=== PATIENT | male | born 1950 | race Caucasian/White ===

== ENCOUNTER 2019-03-30 21:29 | Emergency (ER) | payer MEDICARE, OTHER ==
[~2019-03-30] VITALS: Ht 175.3 cm; Wt 120.2 kg
[~2019-03-30 21:29] MED LIST: ATOR10; ATOR40TA PO; Actos15 MG PO; CEPH500 PO; CRUTCH2 USE; CRUTCH4 USE; CYCL10 PO; Citalopram HBr40 MG PO; DICL75ER PO; DULO30 PO; GLIM4 PO; GLYB5 PO; GLYMET2.5; HYDACE10B PO; HYDACE5 PO; HYDGUAL120 PO; JANUVIA; LEVFLO500 PO; LOSARTAN POTAS100 MG PO; METF500 PO; METF500C PO; METO25ER PO; NAPR220 PO; NAPR500 PO; NAPR550 PO; OLME20; OMEP20ER PO; OXYACE5T PO; PROM25 PO; RXCYCL10 PO; RXNAPNA550 PO; RXOXYACE PO; SIMV40 PO; SIMV5 PO; SULTRIDS PO; VALS80; VALS80 PO; [UNRECOGNIZED DRUG - OTHER]
[2019-03-30 21:59] LABS: BASOPHILS ABSOLUTE AUTO 0.08 K/mm3 (0.00-0.23); BASOPHILS PERCENT AUTO 1 % (0-2); EOSINOPHILS ABSOLUTE AUTO 0.33 K/mm3 (0.00-0.68); EOSINOPHILS PERCENT AUTO 4 % (0-6); Hematocrit 48.5 % (37.0-53.0); Hemoglobin 16.2 g/dL (13.5-17.5); IMMATURE GRAN ABSOLUTE AUTO 0.05 K/mm3 (0.00-0.10); IMMATURE GRAN PERCENT AUTO 1 % (0-1); LYMPHOCYTES ABSOLUTE AUTO 2.07 K/mm3 (0.84-5.20); LYMPHOCYTES PERCENT AUTO 25 % (21-46); MONOCYTES ABSOLUTE AUTO 0.58 K/mm3 (0.16-1.47); MONOCYTES PERCENT AUTO 7 % (4-13); Mean Corpuscular HGB Conc 33.4 g/dL (31.5-36.5); Mean Corpuscular Volume 93 fL (80-100); Mean Platelet Volume 10.4 fL (9.1-12.4); NEUTROPHILS ABSOLUTE AUTO 5.18 K/mm3 (1.96-9.15); NEUTROPHILS PERCENT AUTO 62 % (41-73); Platelet Count 200 K/mm3 (150-400); RDW Coefficient Variation 13.8 % (11.7-14.2); RDW Standard Deviation 47.1 fL (35.1-46.3); Red Blood Cell Count 5.22 M/mm3 (4.30-5.90); White Blood Cell Count 8.29 K/mm3 (4.00-11.30)
[2019-03-30 22:01] LABS: Source, Urine Clean Catch
[2019-03-30 22:04] LABS: Bilirubin, Urine Neg (Neg); Blood, Urine Neg (Neg); Glucose Qualitative, Urine 4+ (Neg); Ketones, Urine Neg (Neg); Leukocyte Esterase, Urine Neg (Neg); Nitrite, Urine Neg (Neg); Protein, Urine Neg (Neg); Specific Gravity, Urine 1.015 (1.003-1.022); Urobilinogen, Urine NORM (Normal)
[2019-03-30 22:11] LABS: Appearance, Urine Clear (Clear); Color, Urine Yellow (P-Yellow)
[2019-03-30 22:19] LABS: Alanine Aminotransfer (ALT/SGP 43 U/L (12-78); Albumin/Globulin Ratio 1.1 (0.8-1.8); Alk Phos 69 U/L (50-136); Anion Gap 8 mmol/L (6-16); Aspartate Aminotrans (AST/SGOT 24 U/L (12-37); Bilirubin, Total 1.3 mg/dL (0.1-1.0); Blood Urea Nitrogen 20 mg/dL (8-24); Bun/Creatinine Ratio 16.4 (12.0-20.0); CO2, Blood 25 mmol/L (21-32); Calcium, Blood 9.2 mg/dL (8.5-10.1); Chloride, Blood 105 mmol/L (98-108); Creatinine, Blood 1.22 mg/dL (0.60-1.20); Globulin, Blood 3.5 g/dL (2.2-4.0); Glomerular Filtration Rate >60 (60-); Glucose, Blood 282 mg/dL (70-99); Potassium, Blood 4.4 mmol/L (3.5-5.5); Sodium, Blood 138 mmol/L (136-145); Total Protein, Blood 7.5 g/dL (6.4-8.2)
[2019-03-30] MEDS ORDERED: BYDUREON P2 MG/0.65 SQ (23:21)
== END 2019-03-31 01:55 | disposition home or self-care (01) ==
LOC: ER 21:29
PROVIDERS: Physician Assistant
DX: R10.32 Left lower quadrant pain (principal); E11.9 Type 2 diabetes mellitus without complications; I10 Essential (primary) hypertension; K21.9 Gastro-esophageal reflux disease without esophagitis; E78.5 Hyperlipidemia, unspecified; Z79.899 Other long term (current) drug therapy
CPT/HCPCS: 36415; 74177; 80053; 81003; 83690; 85025; 96360-59; 99284-25; J7120; Q9967

== ENCOUNTER → 2019-11-01 | Outpatient (CLI) | payer MEDICARE, OTHER ==
[~2019-11-01] MED LIST changes: +BYDUREON P2 MG/0.65 SQ
== END | disposition home or self-care (01) ==
LOC: PLD 11:21 → LAB SHORT 11:21
DX: L85.9 Epidermal thickening, unspecified (principal); L98.499 Non-pressure chronic ulcer of skin of other sites with unspecified severity
CPT/HCPCS: 88305

== ENCOUNTER → 2019-11-13 | Outpatient (CLI) | payer MEDICARE, OTHER ==
[2019-11-13 18:05] LABS: BASOPHILS ABSOLUTE AUTO 0.07 K/mm3 (0.00-0.23); BASOPHILS PERCENT AUTO 1 % (0-2); EOSINOPHILS ABSOLUTE AUTO 0.16 K/mm3 (0.00-0.68); EOSINOPHILS PERCENT AUTO 3 % (0-6); Hematocrit 51.2 % (37.0-53.0); Hemoglobin 16.9 g/dL (13.5-17.5); IMMATURE GRAN ABSOLUTE AUTO 0.05 K/mm3 (0.00-0.10); IMMATURE GRAN PERCENT AUTO 1 % (0-1); LYMPHOCYTES PERCENT AUTO 25 % (21-46); MONOCYTES ABSOLUTE AUTO 0.95 K/mm3 (0.16-1.47); MONOCYTES PERCENT AUTO 17 % (4-13); Mean Corpuscular HGB 30.7 pg (26.0-34.0); Mean Corpuscular Volume 93 fL (80-100); Mean Platelet Volume 10.6 fL (9.1-12.4); NEUTROPHILS ABSOLUTE AUTO 3.04 K/mm3 (1.96-9.15); NEUTROPHILS PERCENT AUTO 54 % (41-73); Platelet Count 228 K/mm3 (150-400); RDW Coefficient Variation 14.5 % (11.7-14.2); RDW Standard Deviation 50.2 fL (35.1-46.3); Red Blood Cell Count 5.51 M/mm3 (4.30-5.90); White Blood Cell Count 5.67 K/mm3 (4.00-11.30)
[2019-11-13 18:14] LABS: Albumin, Blood 3.7 g/dL (3.4-5.0); Bilirubin, Total 1.3 mg/dL (0.1-1.0); Calcium, Blood 9.5 mg/dL (8.5-10.1); Creatinine, Blood 1.27 mg/dL (0.60-1.20); Globulin, Blood 3.8 g/dL (2.2-4.0); Potassium, Blood 4.6 mmol/L (3.5-5.5); Total Protein, Blood 7.5 g/dL (6.4-8.2)
== END | disposition home or self-care (01) ==
LOC: LAB 17:40 → LAB SHORT 17:40
PROVIDERS: Physician Assistant
DX: R42 Dizziness and giddiness (principal)
CPT/HCPCS: 80053; 83036; 85025; 87086

== ENCOUNTER 2020-01-26 07:55 | Day surgery (SDC) | payer MEDICARE, OTHER ==
[~2020-01-26] VITALS: Ht 180.3 cm; Wt 116.6 kg
== END 2020-01-26 10:20 | disposition home or self-care (01) ==
LOC: ORSCSDS 07:55
PROVIDERS: Podiatrist Foot & Ankle Surgery
PROC: 0QBL0ZZ Excision of Right Tarsal, Open Approach (ICD-10-PCS; principal; 2020-01-26 09:15)
DX: M72.2 Plantar fascial fibromatosis (principal); M19.071 Primary osteoarthritis, right ankle and foot; I10 Essential (primary) hypertension; E11.9 Type 2 diabetes mellitus without complications; Z79.84 Long term (current) use of oral hypoglycemic drugs; Z79.899 Other long term (current) drug therapy
CPT/HCPCS: 82947; J0171; J0690; J1100; J1885; J2250; J2405; J2704; J3010; J7120

== ENCOUNTER 2021-04-24 13:27 | Emergency (ER) | payer MEDICARE, OTHER ==
[~2021-04-24] VITALS: Ht 177.8 cm; Wt 118.8 kg
[2021-04-24] MEDS ORDERED: ONDA4ODT MM (13:57)
== END 2021-04-24 13:58 | disposition home or self-care (01) ==
LOC: ER 13:27
DX: U07.1 COVID-19 (principal); I10 Essential (primary) hypertension; E11.9 Type 2 diabetes mellitus without complications; E78.5 Hyperlipidemia, unspecified; Z79.899 Other long term (current) drug therapy; Z79.84 Long term (current) use of oral hypoglycemic drugs
CPT/HCPCS: 99282

== ENCOUNTER 2021-04-28 16:30 | Inpatient (IN) | payer MEDICARE, OTHER ==
[~2021-04-28] VITALS: Ht 177.8 cm; Wt 122.7 kg
[~2021-04-28 16:30] MED LIST changes: +ONDA4ODT MM
[2021-04-28 17:07] LABS: Base Excess Venous -5.9 mmol/L; Bicarbonate Venous 19.7 mmol/L (24.0-30.0); PCO2 Venous 39.5 mmHg (38-42); PO2 Venous 52.5 mmHg (38-42); pH Blood Venous 7.32 (7.34-7.37)
[2021-04-28 17:44] LABS: BASOPHILS ABSOLUTE AUTO 0.01 K/mm3 (0.00-0.23); BASOPHILS PERCENT AUTO 0 % (0-2); EOSINOPHILS PERCENT AUTO 0 % (0-6); Hematocrit 42.4 % (37.0-53.0); IMMATURE GRAN ABSOLUTE AUTO 0.02 K/mm3 (0.00-0.10); IMMATURE GRAN PERCENT AUTO 0 % (0-1); LYMPHOCYTES ABSOLUTE AUTO 0.83 K/mm3 (0.84-5.20); LYMPHOCYTES PERCENT AUTO 11 % (21-46); MONOCYTES ABSOLUTE AUTO 0.42 K/mm3 (0.16-1.47); MONOCYTES PERCENT AUTO 5 % (4-13); Mean Corpuscular HGB 29.2 pg (26.0-34.0); Mean Corpuscular Volume 88 fL (80-100); Mean Platelet Volume 11.1 fL (9.1-12.4); NEUTROPHILS ABSOLUTE AUTO 6.44 K/mm3 (1.96-9.15); NEUTROPHILS PERCENT AUTO 83 % (41-73); Platelet Count 149 K/mm3 (150-400); RDW Coefficient Variation 12.9 % (11.7-14.2); RDW Standard Deviation 42.1 fL (35.1-46.3); White Blood Cell Count 7.72 K/mm3 (4.00-11.30)
[2021-04-28 18:04] LABS: Albumin, Blood 2.9 g/dL (3.4-5.0); Albumin/Globulin Ratio 0.7 (0.8-1.8); Bilirubin, Total 0.6 mg/dL (0.1-1.0); Bun/Creatinine Ratio 29.4 (12.0-20.0); Creatinine, Blood 1.43 mg/dL (0.60-1.20); Globulin, Blood 4.4 g/dL (2.2-4.0); Potassium, Blood 4.7 mmol/L (3.5-5.5); Total Protein, Blood 7.3 g/dL (6.4-8.2); Troponin I 0.018 ng/mL (0.000-0.040)
[2021-04-29 04:58] LABS: BASOPHILS PERCENT AUTO 0 % (0-2); EOSINOPHILS PERCENT AUTO 0 % (0-6); Hematocrit 42.4 % (37.0-53.0); Hemoglobin 14.2 g/dL (13.5-17.5); IMMATURE GRAN ABSOLUTE AUTO 0.02 K/mm3 (0.00-0.10); IMMATURE GRAN PERCENT AUTO 0 % (0-1); LYMPHOCYTES ABSOLUTE AUTO 0.52 K/mm3 (0.84-5.20); LYMPHOCYTES PERCENT AUTO 10 % (21-46); MONOCYTES ABSOLUTE AUTO 0.26 K/mm3 (0.16-1.47); MONOCYTES PERCENT AUTO 5 % (4-13); Mean Corpuscular HGB 29.6 pg (26.0-34.0); Mean Corpuscular HGB Conc 33.5 g/dL (31.5-36.5); Mean Corpuscular Volume 88 fL (80-100); Mean Platelet Volume 11.1 fL (9.1-12.4); NEUTROPHILS ABSOLUTE AUTO 4.58 K/mm3 (1.96-9.15); NEUTROPHILS PERCENT AUTO 85 % (41-73); Platelet Count 144 K/mm3 (150-400); RDW Coefficient Variation 12.8 % (11.7-14.2); RDW Standard Deviation 41.5 fL (35.1-46.3); White Blood Cell Count 5.38 K/mm3 (4.00-11.30)
[2021-04-29 05:19] LABS: Albumin, Blood 2.7 g/dL (3.4-5.0); Albumin/Globulin Ratio 0.6 (0.8-1.8); Bilirubin, Total 0.7 mg/dL (0.1-1.0); Bun/Creatinine Ratio 31.7 (12.0-20.0); Calcium, Blood 8.7 mg/dL (8.5-10.1); Creatinine, Blood 1.45 mg/dL (0.60-1.20); Globulin, Blood 4.7 g/dL (2.2-4.0); Potassium, Blood 5.4 mmol/L (3.5-5.5); Total Protein, Blood 7.4 g/dL (6.4-8.2)
--- NOTE | 2021-04-29 06:04 | NUR ---
SHIFT SUMMARY A/OX3, CURRENTLY ON 7L VIA NC. C/O PLEURITIC PAIN WITH INSPIRATION. DESATS WITH EXERTION. NO ACUTE CHANGES. BED IN LOWEST POSITION WITH CALL LIGHT IN REACH. WILL CONTINUE TO MONITOR AND REPORT TO ONCOMING RN.
--- NOTE | 2021-04-29 16:57 | NUR ---
SHIFT SUMMARY PATIENT ALERT AND ORIENTED, WEAK DUE TO DISEASE PROCESS. PATIENT REMAINING LYING IN BED RESTING THROUGHOUT THIS SHIFT. PATIENT INCREASED TO 12L O2 TO MAINTAIN O2 SAT ABOVE 90. PATIENT CURRENTLY LYING IN BED WATCHING TELEVISION.
[2021-04-30 05:02] LABS: BASOPHILS ABSOLUTE AUTO 0.01 K/mm3 (0.00-0.23); BASOPHILS PERCENT AUTO 0 % (0-2); EOSINOPHILS PERCENT AUTO 0 % (0-6); Hematocrit 41.2 % (37.0-53.0); Hemoglobin 13.9 g/dL (13.5-17.5); IMMATURE GRAN ABSOLUTE AUTO 0.03 K/mm3 (0.00-0.10); IMMATURE GRAN PERCENT AUTO 0 % (0-1); LYMPHOCYTES ABSOLUTE AUTO 0.65 K/mm3 (0.84-5.20); LYMPHOCYTES PERCENT AUTO 8 % (21-46); MONOCYTES ABSOLUTE AUTO 0.38 K/mm3 (0.16-1.47); MONOCYTES PERCENT AUTO 5 % (4-13); Mean Corpuscular HGB 29.3 pg (26.0-34.0); Mean Corpuscular HGB Conc 33.7 g/dL (31.5-36.5); Mean Corpuscular Volume 87 fL (80-100); Mean Platelet Volume 11.2 fL (9.1-12.4); NEUTROPHILS ABSOLUTE AUTO 7.09 K/mm3 (1.96-9.15); NEUTROPHILS PERCENT AUTO 87 % (41-73); Platelet Count 191 K/mm3 (150-400); RDW Coefficient Variation 12.8 % (11.7-14.2); RDW Standard Deviation 40.9 fL (35.1-46.3); Red Blood Cell Count 4.74 M/mm3 (4.30-5.90); White Blood Cell Count 8.16 K/mm3 (4.00-11.30)
[2021-04-30 05:35] LABS: Albumin, Blood 2.4 g/dL (3.4-5.0); Albumin/Globulin Ratio 0.5 (0.8-1.8); Bilirubin, Total 0.5 mg/dL (0.1-1.0); Bun/Creatinine Ratio 38.4 (12.0-20.0); Calcium, Blood 8.8 mg/dL (8.5-10.1); Creatinine, Blood 1.25 mg/dL (0.60-1.20); Globulin, Blood 4.5 g/dL (2.2-4.0); Potassium, Blood 4.8 mmol/L (3.5-5.5); Total Protein, Blood 6.9 g/dL (6.4-8.2)
--- NOTE | 2021-04-30 06:00 | NUR ---
SHIFT SUMMARY: PATIENT IS VERY ILL, CHASING HIS OXYGEN SATURATION ALL NIGHT. IMMEDIATLY HAD TO PLACE HIM ON 15L OXIMIZER AT START OF SHIFT. ONLY ABLE TO KEEP HIS SATS ABOVE 90% IS IF HE LAID ON HIS SIDE. ANY SLIGHT MOVEMENT CAUSED HIM TO DESAT. GETTING UP TO BSC DROPPED HIM TO 70%, AT ONE TIME HE WAS NOT RECOVERING, HAD HIM ON 15 LITER OXIMZER AND A NON-REBREATHER OVER IT WITH 15L EQUALLING 30L OF OXYGEN TO GET HIM ABOVE 90%, IT TOOK SEVERAL MINUTES. PATIENT BOARDERLINE NEEDING AN AIRVO ALL NIGHT. HE WAS UP AND DOWN ON HIS OXYGEN FIGHTING WHEN HE HAD TO MOVE OR DO SOMETHING TO RELAXING AND HAVING ENOUGH ENERGY TO BREATH. ENCOURAGED PRONEING, BUT UNABLE TO DO SO. HAVING ACCIDENTS DUE TO WEAKNESS, LIGHTHEADED, HEADACHES, FLUSHED IN THE FACE, AND JUST NOT ABLE TO GET ENOUGH ENERGY TO MOVE FAST ENOUGHT. VS WNL, AFEBRILE. CALL LIGHT REMAINED IN REACH.
--- NOTE | 2021-04-30 19:35 | NUR ---
PT O2 NEEDS INCREASED THIS SHIFT, AIRVO BEING USED AND SATS REMIAN 90% AND ABOVE. PT EDUCATED TO REST ON HIS SIDE. REMAINS ALERT AND ORIENTED X4. STAFF WILL CONT. TO MONITOR.
[2021-05-01 05:53] LABS: Anion Gap 6 mmol/L (6-16); Blood Urea Nitrogen 41 mg/dL (8-24); Bun/Creatinine Ratio 35.7 (12.0-20.0); CO2, Blood 24 mmol/L (21-32); Calcium, Blood 9.1 mg/dL (8.5-10.1); Chloride, Blood 106 mmol/L (98-108); Creatinine, Blood 1.15 mg/dL (0.60-1.20); Glomerular Filtration Rate >60 (60-); Glucose, Blood 252 mg/dL (70-99); Potassium, Blood 5.1 mmol/L (3.5-5.5); Sodium, Blood 136 mmol/L (136-145)
--- NOTE | 2021-05-01 07:01 | NUR ---
SHIFT SUMMARY: CONTINUES TO BE ON AIRVO 50L 95% O2. HAS TO STAY LAYING ON SIDE TO KEEP SATS ABOVE 90%. AVERAGE IS 93-94% TONIGHT. WHEN GETTING UP DESATS TO 80%, RECOVERY IS 1-2 MINUTES. TACHYPNEA AND DYSPNEA OCCUR. FLUSHED, VERY FATIQUED. NO PAIN, OCCATIONAL COUGH WITH NO PRODUCTION. LS DIMINSHED, CRACKLES. UNABLE TO LAY PRONE. NO OTHER CHANGES TO REPORT. CALL LIGHT IN REACH.
--- NOTE | 2021-05-01 19:40 | NUR ---
SUMMARY- PT A/O X4, ON MAX AIRVO 60L/94%, CRACKLES IN BASES, DESATS WITH ACTIVITY. CONT PULSE OX SATS 82-92%. PT SLEPT MOST OF THE DAY AND LAYS ON SIDES. SATS BEST AT REST. TOLERATING FOOD AND FLUIDS. USING URNIAN. FEELS EXTREMELY EXHAUSTED. REPORT TO TRENT JULIEN.
[2021-05-02 05:35] LABS: Anion Gap 7 mmol/L (6-16); Blood Urea Nitrogen 42 mg/dL (8-24); Bun/Creatinine Ratio 35.3 (12.0-20.0); CO2, Blood 26 mmol/L (21-32); Calcium, Blood 9.8 mg/dL (8.5-10.1); Chloride, Blood 103 mmol/L (98-108); Creatinine, Blood 1.19 mg/dL (0.60-1.20); Glomerular Filtration Rate >60 (60-); Glucose, Blood 273 mg/dL (70-99); Potassium, Blood 4.9 mmol/L (3.5-5.5); Sodium, Blood 136 mmol/L (136-145)
--- NOTE | 2021-05-02 05:49 | NUR ---
SHIFT SUMMARY: CONTINUES TO HOLD ON AIRVO 60L AT 95% O2. WAS ABLE TO LAY ON HIS BACK FOR SHORT PERIOD OF TIME WITH OUT DESATS. WHEN GETTING UP TO A CHAIR, IT WIPED HIM OUT OF ENERGY, AND HE DESATED TO 70'S. ONCE IN BED ON SIDE HE WAS ABLE TO RECOVER IN 2-3 MINUTES. LUNG SOUNDS COURSE, LITTLE PRODUCTION OF COUGH. IS GOOD ABOUT LAYING ON SIDE AND FOLLOWING DIRECTION. VS WNL. NO OTHER CHANGES TO REPORT. CALL LIGHT IN REACH.
--- NOTE | 2021-05-02 11:11 | NUR ---
1000 DR DEAN PHONE CONSULT WITH RN AND PT. PT IS TIRING AND SEVERE DYSPNEA WITH MIN ACTIVITY OF USING URINAL AT BEDSIDE. ORDER FOR CRUZ. LUNGS COARSE IN BASES, OCC DRY TICKLEY COUGH. RR 36 WITH ACTIVITY AND DESATS TO LOW 82, RECOVERS QUICK TO SATS 85 AND 86%, AFTER RESTING FOR 5 MINUTES, MAKES IT BACK TO SATS 90% HIGHTEST WITH RESTING RR 28-32- AIRVO AT HIGHEST SETTINGS. CALLED PEDRO RT TO NOTIFY OF LIKELY TX TO PCU AND TO COME EVAL PT ([id number])- AWAITING DR DEL TORO TO COME EVAL PT IN PERSON.
--- NOTE | 2021-05-02 11:14 | NUR ---
EXTREMELY PAINFUL INSERTION OF CRUZ, PT NOW FINE BUT GETTING PAST PROSTATE AREA WAS DIFFICULT, FLOWING YELLOW URIN, SAMPLE SENT TO LAB, STATES IT IS NOT HURTING CURRENTLY
[2021-05-02 11:30] LABS: Source, Urine Catheter
[2021-05-02 11:46] LABS: Appearance, Urine Clear (Clear); Bilirubin, Urine Neg (Neg); Blood, Urine 1+ (Neg); Color, Urine Yellow (P-Yellow); Glucose Qualitative, Urine 4+ (Neg); Ketones, Urine 1+ (Neg); Leukocyte Esterase, Urine Neg (Neg); Nitrite, Urine Neg (Neg); Protein, Urine 2+ (Neg); Specific Gravity, Urine 1.015 (1.003-1.022); Urobilinogen, Urine NORM (Normal)
[2021-05-02 12:21] LABS: Amorphous Light (0-Heavy); Bacteria Not Seen /hpf; Mucus Light (0-Heavy); Red Blood Cells, Urine 0-2 /hpf (0-2); Squamous Epithelial Cells Rare /hpf (Few); White Blood Cells, Urine 0-2 /hpf (0-5)
--- NOTE | 2021-05-02 20:53 | NUR ---
SUMM- PT WAS FEELING MORE EXHAUSTED THIS AM, MORNRNING ZOOM CALL WITH DR DEAN DECIDED TO TX PT TO PCU, BUT LATER STATED BIPAP STARTED IN HIS ROOM WAS SUFFICIENT. 1320 PLACED ON BIPAP S/T MODE FIO2 70%. PT'S RR WENT DOWN TO 24 FROM 32, SATS WENT UP FROM 84-90% ON AIRVO TO 94% AND STAYED 94-96% ALL AFTERNOON, PT'S RESP EVEN AND UNLABOERD. SKIPPED LUNCH AND RESTED, SIPA OF WATER. OREDR FOR NS 500ML THIS PM SO PT CAN REST AND KEEP BIPAP IN PLACE. PT APPEARED RESTED AND PLEASANT AND ALERT, ABLE TO SIT UP ALERT AND EAT DINNER WITH AIRVO 60L/94% AND KEPT SATS 85%. PLACED BACK ON BIPAP 191 AFTER 45MIN OFF. SPOKE TO ALL OF FAMILY TODAY JESSICA , JESSICA SON AND REY DAUGHTER. PROMISED SIMON LOPEZ A ZOOM CALL TOMORROW SO HE CAN SEE HIS DAD. HE WAS ADAMANT THAT HE COME IN TO SEE HIS DAD AND HAD TO DECLINE RELATED TO THE POLICIES. SO PASSES TO NOC RN TO RALAY INFO TO DAY RN TO INITIATE ZOOM CALL WITH SIMON LOPEZ
[2021-05-03 05:44] LABS: Anion Gap 6 mmol/L (6-16); Blood Urea Nitrogen 43 mg/dL (8-24); Bun/Creatinine Ratio 38.4 (12.0-20.0); CO2, Blood 26 mmol/L (21-32); Calcium, Blood 9.3 mg/dL (8.5-10.1); Chloride, Blood 102 mmol/L (98-108); Creatinine, Blood 1.12 mg/dL (0.60-1.20); Glomerular Filtration Rate >60 (60-); Glucose, Blood 286 mg/dL (70-99); Potassium, Blood 5.1 mmol/L (3.5-5.5); Sodium, Blood 134 mmol/L (136-145)
--- NOTE | 2021-05-03 07:55 | NUR ---
SHIFT SUMMARY: CONTINUES TO BE ON BIPAP WITH SATS HOLDING 88-92%. VERY ILL APPEARING, WEAK, DIFFICULTY MOVING IN BED. CATHETER PATENT AND DRAINING DARK YELLOW URINE. TOOK OFF BIPAP AND PLACED ON AIRVO FOR HIM TO DRINK SOME FLUIDS DUE TO VERY DRY MOUTH LAST NIGHT. WAS UNABLE TO GET 10 FEET AWAY BEFORE HE CALLED REPORTING HE COULD NOT BREATH. SATS WERE DOWN IN THE 60'S, HE WAS BLUE. AIRVO TUBE WAS KINKED AND WAS NOT DELIVERING O2. PLACED ON BIPAP TOOK HIM A WHILE TO RECOVER BLOOD SUGARS IN THE HIGH 300'S. VERY POOR APPETITE, SLEEPS ALL THE TIME. NO OTHER CHANGES TO NOTE.
--- NOTE | 2021-05-03 19:26 | NUR ---
SHIFT SUMMARY: PT REMOVED FROM BIPAP TODAY AND PLACED ON AIRVO 55 LPM, 84% FIOV. PT SATS 88-92%. PT ABLE TO EAT AND DID WELL. NO ACUTE CHANGES THIS SHIFT.
--- NOTE | 2021-05-03 21:54 | NUR ---
BG 403 DR. BURCIAGA CALLED AND NOTIFIED OF PT BG OF 403. RECEIVED ORDER TO GIVE AN ADDITIONAL 4 UNITS OF HUMULIN R. DR. BURCIAGA AWARE THAT PT ALREADY RECEIVED 6 UNITS PER SS.
--- NOTE | 2021-05-04 04:47 | NUR ---
SHIFT SUMMARY PT HAS RESTED MOST OF THE NIGHT. PT HAS SOME DIFFICULTY AT TIMES MAINTAINING HIS SATS ABOE 90%. SATS DIPPED INTO THE 80'S WITH VERY LITTLE EXERTION AND IT TAKES HIM SEVERAL MINUTES TO RECOVER. PT WAS ON AIRVO MOST OF THE NIGHT UP UNTIL ABOUT 0300 WHEN PT WAS SWITCHED TO BIPAP BY RT HAS PT WAS HAVING A DIFFICULT TIME RECOVERING AND GETTING HIS SATS INTO THE 90'S. SATS 96% ON BIPAP. PT REPOSITIONING HIMSELF IN BED NEEDED TO HELP EASE WOB AND INCREASE OXYGEN SATURATION. BG IN THE 400'S THIS SHIFT. PT COVERED WITH INSULIN PER ORDERS. VITALS STABLE. BED IN LOWEST POSITION, CALL LIGHT WITHIN REACH.
[2021-05-04 06:36] LABS: Anion Gap 8 mmol/L (6-16); Blood Urea Nitrogen 41 mg/dL (8-24); Bun/Creatinine Ratio 38.7 (12.0-20.0); CO2, Blood 24 mmol/L (21-32); Calcium, Blood 9.6 mg/dL (8.5-10.1); Chloride, Blood 101 mmol/L (98-108); Creatinine, Blood 1.06 mg/dL (0.60-1.20); Glomerular Filtration Rate >60 (60-); Glucose, Blood 196 mg/dL (70-99); Potassium, Blood 4.5 mmol/L (3.5-5.5); Sodium, Blood 133 mmol/L (136-145)
--- NOTE | 2021-05-04 16:00 | NUR ---
pt holding his own with some struggles had nurse review with him going on a ventilator and cpr he still wants full care.
--- NOTE | 2021-05-04 19:20 | NUR ---
SHIFT SUMMARY: PT NOW ON AIRVO AT 100%. PT WAS ABLE TO EAT DINNER, HAD HEADACHE IMPROVED POST TYLENOL.
--- NOTE | 2021-05-04 20:58 | NUR ---
BG [address] DE[address] CALLED AND NOTIFIED. NOTIFIED HIM OF INSULIN DOSE PT TO RECEIVE HS. 6 UNITS OF REGULAR PER SLIDING SCALE AND 15 UNITS OF SEMGLEE. HE STATE JUST TO GIVE SCHEDULED DOSES, HE DID NOT WANT TO ORDER ADDITIONAL INSULIN.
--- NOTE | 2021-05-05 03:58 | NUR ---
SHIFT SUMMARY PT HAS DONE RELATIVELY WELL ON AIRVO OVERNIGHT. PT DOES HOWEVER STILL DESATS TO THE MID TO LOW 80'S WITH VERY LITTLE EXERTION OR WITH COUGHING. PT DID AMBULATE TODAY TO THE [facility] [place] AND HAD A VERY LARGE BM. THIS SEEMED TO EASE PT WORK OF BREATHING SOME AND HE MAINTAINED SATS IN THE NIGHT N90'S FOR A GOOD AMOUNT OF TIME. ON AVERAGE PT HANGS IN THE LOW 90'S, DIPPING TO THE UPPER 80'S AT TIMES. PT A/OX4, VITALS ARE STABLE. BG REMAINS HIGH DR. AWARE. NO ACUTE CHANGES OVERNIGHT. BED IN LOWEST POSITION, CALL LIGHT WITHIN REACH.
[2021-05-05 06:21] LABS: Anion Gap 7 mmol/L (6-16); Blood Urea Nitrogen 39 mg/dL (8-24); Bun/Creatinine Ratio 35.8 (12.0-20.0); CO2, Blood 26 mmol/L (21-32); Calcium, Blood 10.1 mg/dL (8.5-10.1); Chloride, Blood 98 mmol/L (98-108); Creatinine, Blood 1.09 mg/dL (0.60-1.20); Glomerular Filtration Rate >60 (60-); Glucose, Blood 304 mg/dL (70-99); Potassium, Blood 4.5 mmol/L (3.5-5.5); Sodium, Blood 131 mmol/L (136-145)
--- NOTE | 2021-05-05 20:33 | NUR ---
BLOOD GLUCOSE [address] DEAN OF ABOVE BLOOD GLUCOSE. RECEIVED ORDER TO CHANGE INSULIN COVERAGE TO [facility]. EMAR UPDATED.
[2021-05-06 05:59] LABS: BASOPHILS ABSOLUTE AUTO 0.05 K/mm3 (0.00-0.23); BASOPHILS PERCENT AUTO 1 % (0-2); EOSINOPHILS ABSOLUTE AUTO 0.09 K/mm3 (0.00-0.68); EOSINOPHILS PERCENT AUTO 1 % (0-6); Hematocrit 41.2 % (37.0-53.0); Hemoglobin 14.4 g/dL (13.5-17.5); IMMATURE GRAN ABSOLUTE AUTO 0.41 K/mm3 (0.00-0.10); IMMATURE GRAN PERCENT AUTO 5 % (0-1); LYMPHOCYTES ABSOLUTE AUTO 0.46 K/mm3 (0.84-5.20); LYMPHOCYTES PERCENT AUTO 5 % (21-46); MONOCYTES ABSOLUTE AUTO 0.23 K/mm3 (0.16-1.47); MONOCYTES PERCENT AUTO 3 % (4-13); Mean Corpuscular HGB 29.8 pg (26.0-34.0); Mean Corpuscular Volume 85 fL (80-100); NEUTROPHILS ABSOLUTE AUTO 7.84 K/mm3 (1.96-9.15); NEUTROPHILS PERCENT AUTO 86 % (41-73); Platelet Count 246 K/mm3 (150-400); RDW Coefficient Variation 12.5 % (11.7-14.2); RDW Standard Deviation 38.8 fL (35.1-46.3); Red Blood Cell Count 4.84 M/mm3 (4.30-5.90); White Blood Cell Count 9.08 K/mm3 (4.00-11.30)
[2021-05-06 06:20] LABS: Anion Gap 5 mmol/L (6-16); Blood Urea Nitrogen 37 mg/dL (8-24); Bun/Creatinine Ratio 35.6 (12.0-20.0); CO2, Blood 27 mmol/L (21-32); Calcium, Blood 9.2 mg/dL (8.5-10.1); Chloride, Blood 97 mmol/L (98-108); Creatinine, Blood 1.04 mg/dL (0.60-1.20); Glomerular Filtration Rate >60 (60-); Glucose, Blood 232 mg/dL (70-99); Potassium, Blood 4.3 mmol/L (3.5-5.5); Sodium, Blood 129 mmol/L (136-145)
--- NOTE | 2021-05-06 08:27 | NUR ---
Shift Summary Patient is on V60, switching from heated high flow to bipap mode all night long, did not slept well throughout the night. Patient kept requesting to take bipap off. When request was granted, oxygen dipped into mid 70's and patient's face and ears became cyanotic. Educated patient RE need to remain on bipap, patient has been hesitant but somewhat intermittently agreeable. Sats do well with bipap on. Clinimix @ 50 mLs/hr. Blood sugars remain high (see previous note). Unable to tolerate proning, prefers R side lying. Sauer patent and draining clear yellow urine. Calls appropriately for needs.
--- NOTE | 2021-05-06 19:00 | NUR ---
ASSUMED CARE RECEIVED REPORT FROM ANAYA PADRON. PT O2 SATS DROPPING INTO LOW 60'S AND INTO THE 30'S AFTER ATTEMPTING TO SWITCH FROM BIPAP TO AIRVO; BED SETTER INITIATED. RT AT BEDSIDE ADJUSTING BIPAP SETTINGS. O2 SATS STABILIZING, AVERAGING 80'S-90'S. BBS CLEAR TO AUSCULTATION ANTERIOR AND POSTERIOR. RESPS E/U. O2 PROBE CHANGED TO FINGER D/T POOR PERFUSION TO FEET/TOES. NO OTHER S/S ACUTE DISTRESS NOTED. WCTM.
--- NOTE | 2021-05-06 20:10 | NUR ---
PT RESTING IN BED AFTER PM MEDIATION ADMIN. PT REMAINS ALERT AND ORIETED X4, MAKES NO COPLAINTS OF SOB AT THIS TIME. BIPAP IN USE AND SATS 92 AND ABOVE. WILL CONTINUE TO MONITOR.
--- NOTE | 2021-05-06 23:12 | NUR ---
SPOKE TO DR. SUH REGARDING PT'S CBG OF 356. ORDERS RECEIVED. JOSE.
[2021-05-07 05:00] LABS: BASOPHILS ABSOLUTE AUTO 0.05 K/mm3 (0.00-0.23); BASOPHILS PERCENT AUTO 0 % (0-2); EOSINOPHILS ABSOLUTE AUTO 0.08 K/mm3 (0.00-0.68); EOSINOPHILS PERCENT AUTO 1 % (0-6); Hematocrit 40.2 % (37.0-53.0); IMMATURE GRAN ABSOLUTE AUTO 0.46 K/mm3 (0.00-0.10); IMMATURE GRAN PERCENT AUTO 4 % (0-1); LYMPHOCYTES ABSOLUTE AUTO 0.42 K/mm3 (0.84-5.20); LYMPHOCYTES PERCENT AUTO 4 % (21-46); MONOCYTES ABSOLUTE AUTO 0.25 K/mm3 (0.16-1.47); MONOCYTES PERCENT AUTO 2 % (4-13); Mean Corpuscular HGB 29.5 pg (26.0-34.0); Mean Corpuscular HGB Conc 34.8 g/dL (31.5-36.5); Mean Corpuscular Volume 85 fL (80-100); Mean Platelet Volume 10.8 fL (9.1-12.4); NEUTROPHILS PERCENT AUTO 89 % (41-73); Platelet Count 209 K/mm3 (150-400); RDW Coefficient Variation 12.5 % (11.7-14.2); RDW Standard Deviation 38.1 fL (35.1-46.3); Red Blood Cell Count 4.74 M/mm3 (4.30-5.90); White Blood Cell Count 11.46 K/mm3 (4.00-11.30)
[2021-05-07 05:27] LABS: Anion Gap 5 mmol/L (6-16); Blood Urea Nitrogen 38 mg/dL (8-24); Bun/Creatinine Ratio 37.3 (12.0-20.0); CO2, Blood 27 mmol/L (21-32); Calcium, Blood 9.4 mg/dL (8.5-10.1); Chloride, Blood 95 mmol/L (98-108); Creatinine, Blood 1.02 mg/dL (0.60-1.20); Glomerular Filtration Rate >60 (60-); Glucose, Blood 329 mg/dL (70-99); Potassium, Blood 4.7 mmol/L (3.5-5.5); Sodium, Blood 127 mmol/L (136-145); Triglycerides 122 mg/dL (30-160)
--- NOTE | 2021-05-07 07:30 | NUR ---
SHIFT SUMMARY PT RESTING, IN NAD. VS REVIEWED,WNL; 02 SATS STABLE ON BIPAP; AVERAGING 94-97%. APPEARED TO SLEEP WELL OVERNIGHT. CRUZ CATHETER PATENT AND DRAINING KHRIS YELLOW URINE TO GRAVITY. NO ACUTE CHANGES TO REPORT OVERNIGHT, PT TOLERATED BIPAP WELL. MEDICATED X1 FOR C/O PAIN WITH GOOD EFFECT. NO ACUTE NEEDS ASSESSED AT THIS TIME. CALL LIGHT AND POSSESSIONS IN REACH. REPORT GIVEN TO ANAYA PADRON.
[2021-05-07 09:37] LABS: PCO2 Arterial 33.2 mmHg (35-45); PO2 Arterial 64.4 mmHg (80-100); pH Blood Arterial 7.45 (7.35-7.45)
[2021-05-07 14:58] LABS: Anion Gap 9 mmol/L (6-16); Blood Urea Nitrogen 40 mg/dL (8-24); Bun/Creatinine Ratio 40.9 (12.0-20.0); CO2, Blood 23 mmol/L (21-32); Calcium, Blood 9.6 mg/dL (8.5-10.1); Chloride, Blood 91 mmol/L (98-108); Creatinine, Blood 0.98 mg/dL (0.60-1.20); Glomerular Filtration Rate >60 (60-); Glucose, Blood 398 mg/dL (70-99); Sodium, Blood 123 mmol/L (136-145)
--- NOTE | 2021-05-07 19:59 | NUR ---
PT REMAINS ALERT AND ORIENTED X4, ANXIOUS AND ON BIPAP AT 80%, SATS 90 AND ABOVE. LUNCH AND BREAKFAST HELD DUE TO DESATURATION TO LOW 70'S WHILE ON AIRVO TO EAT. RT AND MD AWARE. PT WAS ON IV NUTRITION FOR MOST OF SHIFT. REFUSED INSURES. STAFF WILL CONTINUE TO MONITOR.
[2021-05-07 22:43] LABS: PCO2 Arterial 41.4 mmHg (35-45); PO2 Arterial 100 mmHg (80-100); pH Blood Arterial 7.41 (7.35-7.45)
--- NOTE | 2021-05-08 04:30 | NUR ---
PHYSICIAN CORRESPONDENCE O2 NEEDS CONTINUED TO INCREASE AFTER COUGHING AND DESATURATION. ON-CALL PROVIDER STATED NEED FOR HIGHER LEVEL OF CARE. CURRENTLY ON BIPAP V60 /c 100% /c SPO2 BETWEEN LOW 80s-90s
[2021-05-08 04:56] LABS: BASOPHILS ABSOLUTE AUTO 0.06 K/mm3 (0.00-0.23); BASOPHILS PERCENT AUTO 0 % (0-2); EOSINOPHILS ABSOLUTE AUTO 0.06 K/mm3 (0.00-0.68); EOSINOPHILS PERCENT AUTO 0 % (0-6); Hematocrit 40.6 % (37.0-53.0); IMMATURE GRAN ABSOLUTE AUTO 0.54 K/mm3 (0.00-0.10); IMMATURE GRAN PERCENT AUTO 4 % (0-1); LYMPHOCYTES ABSOLUTE AUTO 0.54 K/mm3 (0.84-5.20); LYMPHOCYTES PERCENT AUTO 4 % (21-46); MONOCYTES ABSOLUTE AUTO 0.26 K/mm3 (0.16-1.47); MONOCYTES PERCENT AUTO 2 % (4-13); Mean Corpuscular HGB 29.5 pg (26.0-34.0); Mean Corpuscular HGB Conc 34.5 g/dL (31.5-36.5); Mean Corpuscular Volume 86 fL (80-100); Mean Platelet Volume 11.4 fL (9.1-12.4); NEUTROPHILS ABSOLUTE AUTO 12.39 K/mm3 (1.96-9.15); NEUTROPHILS PERCENT AUTO 90 % (41-73); Platelet Count 197 K/mm3 (150-400); RDW Coefficient Variation 12.4 % (11.7-14.2); RDW Standard Deviation 38.8 fL (35.1-46.3); Red Blood Cell Count 4.75 M/mm3 (4.30-5.90); White Blood Cell Count 13.85 K/mm3 (4.00-11.30)
[2021-05-08 05:23] LABS: Anion Gap 4 mmol/L (6-16); Blood Urea Nitrogen 35 mg/dL (8-24); Bun/Creatinine Ratio 35.9 (12.0-20.0); CO2, Blood 30 mmol/L (21-32); Calcium, Blood 9.9 mg/dL (8.5-10.1); Chloride, Blood 97 mmol/L (98-108); Creatinine, Blood 0.97 mg/dL (0.60-1.20); Glomerular Filtration Rate >60 (60-); Glucose, Blood 245 mg/dL (70-99); Potassium, Blood 4.7 mmol/L (3.5-5.5); Sodium, Blood 131 mmol/L (136-145)
--- NOTE | 2021-05-08 06:10 | NUR ---
ARRIVAL PCU / END SHIFT PT BROUGHT TO PCU-03 BY BED FROM MEDICAL FLOOR RM 362. PT A&O X4. VSS. SPO2 100% ON BIPAP: 21/08, FIO2 100%. FIO2 TITRATED TO 95% UPON ARRIVAL TO UNIT W/ PT TOLERATING WELL. PT REPORT OF PRODUCTIVE COUGH W/ SMALL AMOUNT OF PHLEM, UNKNOWN COLOR PT STATES "I NEVER SAW IT." PT PROVIDED W/ PRN COUGH MEDICINE PER EMAR UPON ARRIVAL TO UNIT. PAPER SORTER PLACED ON PT, SHOWING SR, HR 80's. PT DENIES PAIN/DISCOMFORT. NS GTT INFUSING PER ORDERS. WILL CONTINUE TO MONITOR & PROVIDE CARE UNTIL REPORT OFF TO DAY SHIFT RN ASSUMING CARE.
--- NOTE | 2021-05-08 08:00 | NUR ---
pt laying in bed, pleasant and cooperative with care, follows commands well, denies pain, is on bipap, placed him on airvo for medication pass, v.s. stable, has not been eating as is breathing to hard, lungs are course t/o, dim in bases, resp even and unlabored, has a nonproductive cough occ, does desat with movement, and on airvo, replaced the mask and sats came back up, hrr, tele in place running sr per monitor, see strip, +1 edmea noted, ppp+1, cap refill <3sec, vs stable, afebrile, iv site to lac is clear and patent, btx4, abd flat soft nontender, spoke to him about proning, he refused, but did roll to his side, simons cath draining clear yellow urine, skin c/w/d, vanessa nicolas, call light in reach.
--- NOTE | 2021-05-08 11:00 | NUR ---
Sequential Organ Failure Assessment Score requested and performed. Per the recreation program specialist the principal demonstrates a reasonable mortality index, and therefore if aggressive treatment is desired, it should be administered, unless or until the principals illness advances to a point that it becomes medically non-beneficial or disproportionate to continue, or the principal or his family agrees to a non-escelation of care or a complete withdrawl. Thank you for this consult. Jcarlos Carter ThD
--- NOTE | 2021-05-08 13:36 | NUR ---
Ethics consult order processed. Case details, medical history and prognostic information reviewed. Sequential Organ Failure Assessment ordered and analyzed. The principal has a relatively optimistic mortality index, retains testamentary capacity, and prefers stabalizing and heroic care be administered if he decompensates. If his prognosis suffers decline and or he becomes a poor candidate for ongoing treatment, please re-engage me for additional service. Thank you for this consult. Jcarlos Carter ThD
--- NOTE | 2021-05-08 18:34 | NUR ---
pt sleeping when left undisturbed, v.s. stable, desats quickly when changed to airvo, no acute changes this shift. call light in reach.
[2021-05-09 04:47] LABS: BASOPHILS ABSOLUTE AUTO 0.03 K/mm3 (0.00-0.23); BASOPHILS PERCENT AUTO 0 % (0-2); EOSINOPHILS ABSOLUTE AUTO 0.01 K/mm3 (0.00-0.68); EOSINOPHILS PERCENT AUTO 0 % (0-6); Hematocrit 35.1 % (37.0-53.0); Hemoglobin 12.4 g/dL (13.5-17.5); IMMATURE GRAN ABSOLUTE AUTO 0.29 K/mm3 (0.00-0.10); IMMATURE GRAN PERCENT AUTO 2 % (0-1); LYMPHOCYTES ABSOLUTE AUTO 0.41 K/mm3 (0.84-5.20); LYMPHOCYTES PERCENT AUTO 3 % (21-46); MONOCYTES ABSOLUTE AUTO 0.37 K/mm3 (0.16-1.47); MONOCYTES PERCENT AUTO 3 % (4-13); Mean Corpuscular HGB 29.5 pg (26.0-34.0); Mean Corpuscular HGB Conc 35.3 g/dL (31.5-36.5); Mean Corpuscular Volume 84 fL (80-100); Mean Platelet Volume 11.8 fL (9.1-12.4); NEUTROPHILS ABSOLUTE AUTO 13.09 K/mm3 (1.96-9.15); NEUTROPHILS PERCENT AUTO 92 % (41-73); Platelet Count 198 K/mm3 (150-400); RDW Coefficient Variation 12.5 % (11.7-14.2); RDW Standard Deviation 37.6 fL (35.1-46.3)
[2021-05-09 05:05] LABS: Anion Gap 9 mmol/L (6-16); Blood Urea Nitrogen 33 mg/dL (8-24); Bun/Creatinine Ratio 33.3 (12.0-20.0); CO2, Blood 23 mmol/L (21-32); Chloride, Blood 100 mmol/L (98-108); Creatinine, Blood 0.99 mg/dL (0.60-1.20); Glomerular Filtration Rate >60 (60-); Glucose, Blood 246 mg/dL (70-99); Potassium, Blood 4.6 mmol/L (3.5-5.5); Sodium, Blood 132 mmol/L (136-145)
--- NOTE | 2021-05-09 07:06 | NUR ---
SHIFT SUMMARY NO ACUTE EVENTS THIS SHIFT. PT MAINTAINING O2 SATS OVER 90% ON BIPAP 16/12 60% FIO2. PT TOLERATED THE AIRVO WELL FOR 10 MINUTES. TELE READS 84 NSR AND BP STABLE. CHANGED PT POSITION Q2 HRS. PT UNWILLING TO PRONE. PT LEFT IN BED RESTING WITH CALL ALARM AT SIDE
--- NOTE | 2021-05-09 09:50 | NUR ---
pt shakes head no when asked how he is doing, tired of the mask, states he's really hungry, lungs are course dim t/o resp even and unlabored, no cough noted at this time, is on bipap, and airvo for short periods, hrr, tele in place running sr per monitor, see strip, trace edema noted to b/l le, ppp+1, cap refill <3sec, vs stable, afebrile, iv sites are clear and patent, btx4, abd flat soft nontender, refusing senokot, but reports no bm in 3 days, states ensure will give him loose stools, so he drank an ensure, sats did drop on oxymizer was placed back on mask, he is refusing to prone, but will go on his side, simons cath draining clear yellow urine, skin c/w/d, vanessa nicolas, call light in reach.
--- NOTE | 2021-05-09 10:17 | NUR ---
pt desated into the 70's, states he can't breath, is on bipap at 100%, got him to prone and called rt to room, he is highly anxious but improved. sats are in the 90's at this time. call light in reach.
--- NOTE | 2021-05-09 11:02 | NUR ---
PATEINT WITH SUDDEN EARLIER DESATURATION TO 455. ASSISTED TO PRONE. RR >45. RECOVERED AFTER APPROX 5-10 MINUTE PRONED. RT IN AT BEDSIDE. BIPAP 21/08 WITH 100 % FIO2. SPO2 INCREASED TO 94 %. PT REPORTS FEELING HE IS GOING TO , DOES NOT FEEL BIPPA IS DOING JOB. CALLED AND DISCUSSED WITH DR. DEAN. NEW ORDERS RECEIVED FOR ATIVAN. MEDICATED PER MY ORDER. RR DECREASED AT THIS TIME TO 30. SPO2 94% CALL LIGHT AT SIDE.
--- NOTE | 2021-05-09 12:59 | NUR ---
PULMINARY IN TO SEE PT, MOVED HIM TO ICU. CONTINUED TO PRONE UNTIL TRANSFER, WAS NOTIFIED OF TX AND PLAN. REPORT GIVEN TO CYDNEY Collazo RN.
--- NOTE | 2021-05-09 13:40 | NUR ---
PT TRANSFERRED FROM PCU TO ICU 5 IN BED. ABLE TO ASSIST TO TRANSFER TO ICU BED. AWAKE, ALERT, ABLE TO FOLLOW DIRECTIONS. RESPIRATORY DISTRESS, ON BIPAP 16/12 100% SATURATIONS 80%. LUNGS COARSE T/O NO COUGH. SINUT TACH UP TO 130'S. RESPIRATORY THERAPISTS AT BEDSIDE, PREPARING FOR INTUBATION. DR. BEYER AT BEDSIDE-DISCUSSED PLAN WITH PT, AGREEABLE. PT RX WITH FENTANYL, THEN REPEAT FENTANYL 50 MG, VERSED 2 MG AND ETOMIDATE 20 MG THEN ROCC 50MG. INTUBATED WITHOUT DIFFICULTY BY USING GLIDESCOPE. POSITIVE COLORE CHANGE, 8.0 ETT 24 GRIS. HYPERTENSIVE, RX WITH ADDITIONAL FENTANYL 100 MCG AND PROPOFOL TITRATED UP TO 50 MCG/KG/MIN. VENT SETTINGS AC/VC 22 TV 440 PEEP 12, SATURATIONS 97%. BILATERAL WRIST RESTRAINTS. OGT PLACED BY DIPAK RN WITHOUT DIFFICULTY, AIR BOLUS HEARD, CLAMPED. UO VIA CRUZ CLEAR KHRIS. PIV LEFT AC AND PIV R WRIST DI. 1315 FENTANYL 50 1322 VERSED 2 MG 1323 FENTANYL 50 1326 ETOMIDATE 20 MG 1326 ROCC 50 MG
--- NOTE | 2021-05-09 14:57 | NUR ---
PT COUGHING, UNABLE TO TOLERATE VENT. FENTANYL SCRATCH FINISHER GTT STARTED 50 MCG/HR, PROPOFOL INCREASED TO 70 MCG/KG/MIN AND NIMBEX STARTED. TOELRATING VENT NOW. BIS MONITOR ON-56
--- NOTE | 2021-05-09 18:07 | NUR ---
PT STABLE NOW WITH VENT SETTINGS, PARALZED WITH NIMBEX AT 2 MCG/KG/MIN. TOF 2/4 PROPOFOL FOR SEDATION AT 70 MCG/KG/MIN. RSC LINE PLACED BY DR. TAVERA, CLEARED BY DR. TAVERA TO USE. NSR. BP STABLE. BIS MONITORING IN PLACE 50'S. CONTINUE TO MONITOR. ENHANCED PRECAUTIONS.
[2021-05-10 04:48] LABS: BASOPHILS ABSOLUTE AUTO 0.03 K/mm3 (0.00-0.23); BASOPHILS PERCENT AUTO 0 % (0-2); EOSINOPHILS PERCENT AUTO 0 % (0-6); Hematocrit 38.7 % (37.0-53.0); IMMATURE GRAN ABSOLUTE AUTO 0.22 K/mm3 (0.00-0.10); IMMATURE GRAN PERCENT AUTO 2 % (0-1); LYMPHOCYTES ABSOLUTE AUTO 0.39 K/mm3 (0.84-5.20); LYMPHOCYTES PERCENT AUTO 3 % (21-46); MONOCYTES ABSOLUTE AUTO 0.43 K/mm3 (0.16-1.47); MONOCYTES PERCENT AUTO 3 % (4-13); Mean Corpuscular HGB 29.3 pg (26.0-34.0); Mean Corpuscular HGB Conc 33.6 g/dL (31.5-36.5); Mean Corpuscular Volume 87 fL (80-100); Mean Platelet Volume 11.9 fL (9.1-12.4); NEUTROPHILS ABSOLUTE AUTO 12.89 K/mm3 (1.96-9.15); NEUTROPHILS PERCENT AUTO 92 % (41-73); Platelet Count 197 K/mm3 (150-400); RDW Coefficient Variation 12.8 % (11.7-14.2); Red Blood Cell Count 4.43 M/mm3 (4.30-5.90); White Blood Cell Count 13.96 K/mm3 (4.00-11.30)
[2021-05-10 05:24] LABS: Anion Gap 6 mmol/L (6-16); Blood Urea Nitrogen 34 mg/dL (8-24); Bun/Creatinine Ratio 36.4 (12.0-20.0); CO2, Blood 26 mmol/L (21-32); Calcium, Blood 9.1 mg/dL (8.5-10.1); Chloride, Blood 99 mmol/L (98-108); Creatinine, Blood 0.94 mg/dL (0.60-1.20); Glomerular Filtration Rate >60 (60-); Glucose, Blood 302 mg/dL (70-99); Magnesium, Blood 1.9 mg/dL (1.6-2.4); Phosphorus, Blood 4.4 mg/dL (2.5-4.9); Potassium, Blood 4.9 mmol/L (3.5-5.5); Sodium, Blood 131 mmol/L (136-145)
--- NOTE | 2021-05-10 05:52 | NUR ---
SHIFT SUMMARY PT INTUBATED/SEDATED/PARALYZED. TOF=1/4 CONSISTENTLY T/O SHIFT. CURRENT VENT SETTINGS AT 70% FIO2, AC 22, VT 440, PEEP OF 14. SINUS RHYTHM 70'S-80'S, SBP 110'S-120'S THROUGHOUT SHIFT. SATS 96-98% ON VENT. GLUCOSE TRENDS HIGHER THROUGH SHIFT, COVERED WITH Q6 INSULIN FOLLOWING CHECKS. NO TUBE FEEDING AT THIS TIME, PUMP UNAVAILABLE. PROPOFOL 75 MCG/KG/MIN, NIMBEX 2 MCG/KG/MIN, FENTANYL 50 MCG/HR CONTINUE INFUSING.
--- NOTE | 2021-05-10 08:30 | NUR ---
PT REMAINS PRONE. LS SLIGHTLY COARSE T/O. PERRLA. BIS READING 34. VT 440, PEEP 14, FIO2 100% WITH SPO2 92%. NO TITRATION OF MEDICATIONS. NSR NOTED ON MONITOR THIS AMM. VSS. ROM GOOD IN LEGS AND ARMS. CRUZ DRAINING DARK COLORED URINE TO GRAVITY. AWAITING THE START OF TUBE FEEDING
--- NOTE | 2021-05-10 11:55 | NUR ---
40ML REDISUAL NOTED FROM OG TUBE. TUBE FEEDING INFUSIG AT THIS TIME AT GOAL RATE OF 20
--- NOTE | 2021-05-10 16:25 | NUR ---
LS CLEAR T/O IN SUPINE POSITION. VSS. PT HAS BEEN TURNED FROM PRONE TO SUPINE DURING THIS SHIFT. TUBE FEEDING IS INFUSING AT THE GOAL RATE OF 20ML/HR. PROPOFOL 75MCG/HR, NIMBEX 2, FENTANYL 50MCG. 440/12/50. PERRL. LS REMAIN WITH SLIGHT COARSENESS T/O. BIS 42. PERRL, 2MM PUPILS.
--- NOTE | 2021-05-10 20:40 | NUR ---
CARE ASSUMPTION PT W BIS 40-50 W PROPOFOL AT 75, FENTANYL AT 50, AND NIMBEX AT 2. BP WNL AND STABLE, HR SR IN THE 60'S. TOF AT 3/4. O2 SATS >92% W 52% FIO2. TEAM IN PLACE TO PRONE AT THIS TIME.
--- NOTE | 2021-05-11 01:27 | NUR ---
PT UPDATE RT ATTEMPTED TO TURN FIO2 DOWN FROM 60% TO 50% SINCE O2 SATS WERE 97% HOWEVER, SHORTLY AFTER THIS O2 SATS MAINTAINED AT 87-88% SO FIO2 RETURN TO 60% W O2 SATS >92%. BP ELEVATED SO PROVIDER CONTACTED AND HYDRALAZINE ORDER OBTAINED.
--- NOTE | 2021-05-11 06:13 | NUR ---
[facility] SUMMARY PT BEGAN THE SHIFT W 50% FIO2 ON THE VENT W O2 SATS >90% HOWEVER HE WAS THEN TITRATED TO 60% FIO2 WHERE HE MAINTAINED O2 SATS >90% FOR MOST OF THE SHIFT UNTIL THIS AM WHERE HE REQUIRED 70% FIO2 TO MAINTAIN O2 SATS >90%. PT HAD A HR IN THE MID 60'S AT START OF THE SHIFT HOWEVER ONCE PRONED HIS HR WAS IN THE 80'S. THROUGHOUT THE SHIFT THE PT'S HR CLIMBED TO 100 AND BP BECAME VERY ELEVATED HIGH SBP IN THE 190'S, LABETOLOL AND HYDRALAZINE ORDER OBTAINED AND GIVEN W MODERATE EFFECTS. OG RESIDUALS REMAIN <100. PT AFEBRILE THIS SHIFT W PEAK TEMP OF 97.0. PROPOFOL TITRATED FROM 75MCG/HR TO 70MCG/HR FOR A COUPLE HRS THIS SHFIT BUT BIS CLIMBED TO 60 SO PROPOFOL AGAIN PLACED AT 75MCG/HR W BIS 42-44 ALL SHIFT. THIS RN SPOKE TO PT'S WHO EXPRESSED THE DESIRE TO SPEAK W HER HUSBANDS DAYSHIFT PROVIDER, WILL PASS ON TO DAYSHIFT RN. ET TUBE IS 26 AT THE LIP. WILL REPORT TO ONCOMING RN. NIMBEX REMAINED AT 2 ALL SHIFT AND FENTANYL IS
--- NOTE | 2021-05-11 07:00 | NUR ---
PT CARE ASSUMED AFTER REPORT FROM ELECTION ASSISTANT. PT PRONE, VENTED, SEDATED AND PARALYZED.
[2021-05-11 08:18] LABS: BASOPHILS ABSOLUTE AUTO 0.04 K/mm3 (0.00-0.23); BASOPHILS PERCENT AUTO 0 % (0-2); EOSINOPHILS ABSOLUTE AUTO 0.08 K/mm3 (0.00-0.68); EOSINOPHILS PERCENT AUTO 0 % (0-6); Hematocrit 41.5 % (37.0-53.0); Hemoglobin 13.7 g/dL (13.5-17.5); IMMATURE GRAN ABSOLUTE AUTO 0.41 K/mm3 (0.00-0.10); IMMATURE GRAN PERCENT AUTO 2 % (0-1); LYMPHOCYTES ABSOLUTE AUTO 0.46 K/mm3 (0.84-5.20); LYMPHOCYTES PERCENT AUTO 2 % (21-46); MONOCYTES ABSOLUTE AUTO 0.64 K/mm3 (0.16-1.47); MONOCYTES PERCENT AUTO 3 % (4-13); Mean Corpuscular HGB 29.1 pg (26.0-34.0); Mean Corpuscular Volume 88 fL (80-100); Mean Platelet Volume 11.5 fL (9.1-12.4); NEUTROPHILS ABSOLUTE AUTO 17.32 K/mm3 (1.96-9.15); NEUTROPHILS PERCENT AUTO 91 % (41-73); Platelet Count 231 K/mm3 (150-400); RDW Coefficient Variation 12.9 % (11.7-14.2); Red Blood Cell Count 4.71 M/mm3 (4.30-5.90); White Blood Cell Count 18.95 K/mm3 (4.00-11.30)
[2021-05-11 08:34] LABS: Anion Gap 3 mmol/L (6-16); Blood Urea Nitrogen 39 mg/dL (8-24); Bun/Creatinine Ratio 41.4 (12.0-20.0); CO2, Blood 29 mmol/L (21-32); Calcium, Blood 8.9 mg/dL (8.5-10.1); Chloride, Blood 99 mmol/L (98-108); Creatinine, Blood 0.94 mg/dL (0.60-1.20); Glomerular Filtration Rate >60 (60-); Glucose, Blood 322 mg/dL (70-99); Potassium, Blood 4.9 mmol/L (3.5-5.5); Sodium, Blood 131 mmol/L (136-145)
--- NOTE | 2021-05-11 11:58 | NUR ---
PERFORMED BACK CARE ON PT WHILE PRONE. COMPLETED CARE ON FRONT WHEN PT WAS TURNED
--- NOTE | 2021-05-11 19:51 | NUR ---
CARE ASSUMPTION PT HAS O2 SATS >94% ON 60% FIO2 W A PEEP OF 12. PT IS NOT PRONED AT THIS TIME. BIS SCORE IS 40-43 W PROPOFOL AT 75MCG/HR AND TOF IS 3.4 W NIMBEX AT 2. FENTANYL SEED ANALYSIS LABORATORY ASSISTANT RUNNING AT 50MCG/HR. OG RESIDUAL IS 20 AT THIS TIME. BP 135/70 W A HR AT 84. RR 22-24. PT IS AFEBRILE W A TEMP OF 96.5. ET TUBE CHECKED AND REMAINS AT 26 AT THE LIP. OG TUBE REMAINS TAPED IN PLACE W NO MOVEMENT FROM PREVIOUS SHIFT W CONTINUOUS FEEDING AT 20ML/HR W A Q4H FLUSH OF 30ML. WCTM.
[2021-05-12 03:57] LABS: BASOPHILS ABSOLUTE AUTO 0.04 K/mm3 (0.00-0.23); BASOPHILS PERCENT AUTO 0 % (0-2); EOSINOPHILS PERCENT AUTO 1 % (0-6); Hematocrit 39.3 % (37.0-53.0); Hemoglobin 13.2 g/dL (13.5-17.5); IMMATURE GRAN ABSOLUTE AUTO 0.36 K/mm3 (0.00-0.10); IMMATURE GRAN PERCENT AUTO 2 % (0-1); LYMPHOCYTES ABSOLUTE AUTO 0.42 K/mm3 (0.84-5.20); LYMPHOCYTES PERCENT AUTO 3 % (21-46); MONOCYTES ABSOLUTE AUTO 0.52 K/mm3 (0.16-1.47); MONOCYTES PERCENT AUTO 3 % (4-13); Mean Corpuscular HGB 29.1 pg (26.0-34.0); Mean Corpuscular HGB Conc 33.6 g/dL (31.5-36.5); Mean Corpuscular Volume 87 fL (80-100); Mean Platelet Volume 11.2 fL (9.1-12.4); NEUTROPHILS ABSOLUTE AUTO 14.24 K/mm3 (1.96-9.15); NEUTROPHILS PERCENT AUTO 91 % (41-73); Platelet Count 220 K/mm3 (150-400); Red Blood Cell Count 4.53 M/mm3 (4.30-5.90); White Blood Cell Count 15.68 K/mm3 (4.00-11.30)
[2021-05-12 04:13] LABS: Anion Gap 3 mmol/L (6-16); Blood Urea Nitrogen 39 mg/dL (8-24); CO2, Blood 29 mmol/L (21-32); Calcium, Blood 9.1 mg/dL (8.5-10.1); Chloride, Blood 100 mmol/L (98-108); Creatinine, Blood 0.85 mg/dL (0.60-1.20); Glomerular Filtration Rate >60 (60-); Glucose, Blood 294 mg/dL (70-99); Potassium, Blood 4.4 mmol/L (3.5-5.5); Sodium, Blood 132 mmol/L (136-145)
--- NOTE | 2021-05-12 06:06 | NUR ---
TICKET SPECULATOR SUMMARY PT MAINTAINED O2 SATS >92% ALL SHIFT ON 50% FIO2 W A PEEP OF 12. CHILD WELFARE DIRECTOR SHOWING SR IN THE 80'S THIS SHIFT W PVC'S AND EPISODES OF BIGEMINY. HR UP INTO THE 90'S SINCE 0 AND BP ELEVATED AT THIS TIME WELL. PROPOFOL AT 75MCG/HR AND FENTANYL AT 50 MCG/HR ALL SHIFT W A BIS OF 39-44. NIMBEX AT 2 ALL SHIFT W A TOF AT 3/4. ET TUBE REMAINS AT 26 AT THE LIP. LS HAVE BEEN COARSE THROUGHOUT ALL NIGHT. BS ABSENT BUT RESIDUALS REMAIN <100 W TF RUNNING AT 20ML/HR W A 30ML FLUSH Q4H. CRUZ PATENT AND DRAINED 1200ML DARK URINE THIS SHIFT. PT AFEBRILE THIS SHIFT W A PEAK TEMP OF 96.9. WILL REPORT TO ONCOMING RN.
--- NOTE | 2021-05-12 06:32 | NUR ---
PT UPDATE 0619 BP ELEVATED AT 180/74 W A HR AT 99 SO 15MG OF LABETOLOL GIVEN BRING HR DOWN TO 82 BPM AND A BP OF 136/61.
--- NOTE | 2021-05-12 06:37 | NUR ---
SHIFT SUMMARY PATIENT HAS DONE WELL FABIAN
--- NOTE | 2021-05-12 07:00 | NUR ---
PT CARE ASSUMED AFTER REPORT FROM RIG SUPERVISOR RN. PT PRONE, SEDATED AND PARALYZED. TO4 10/10 AT 7.
--- NOTE | 2021-05-12 11:15 | NUR ---
90ML RESIDUAL FROM OG TUBE
--- NOTE | 2021-05-12 14:40 | NUR ---
NIMBEX TO 1MCG PER MD ORDER TO WEAN
--- NOTE | 2021-05-12 15:04 | NUR ---
PROPOFOL TO 65MCG
--- NOTE | 2021-05-12 16:55 | NUR ---
NIMBEX OFF PER ORDERES
--- NOTE | 2021-05-12 17:50 | NUR ---
PT REMAINED STABLE THROUGHOUT THE DAY. NIMBEX OFF AT 1700.
--- NOTE | 2021-05-12 23:37 | NUR ---
CARE ASSUMPTION PT INTUBATED W ET TUBE 26 AT THE LIP. BP WNL AND HR RUNNING SR IN THE 80'S. O2 SATS >92% ON 50% FIO2 PEEP OF 12. CONTINUOUS FEEDING RUNNING AT 20ML/HR W A 30ML Q4H FLUSH, OG TUBE SECURED TO ET TUBE. WCTM
[2021-05-13 04:04] LABS: BASOPHILS ABSOLUTE AUTO 0.05 K/mm3 (0.00-0.23); BASOPHILS PERCENT AUTO 0 % (0-2); EOSINOPHILS ABSOLUTE AUTO 0.07 K/mm3 (0.00-0.68); EOSINOPHILS PERCENT AUTO 1 % (0-6); Hematocrit 34.9 % (37.0-53.0); Hemoglobin 11.8 g/dL (13.5-17.5); IMMATURE GRAN ABSOLUTE AUTO 0.45 K/mm3 (0.00-0.10); IMMATURE GRAN PERCENT AUTO 4 % (0-1); LYMPHOCYTES ABSOLUTE AUTO 0.62 K/mm3 (0.84-5.20); LYMPHOCYTES PERCENT AUTO 5 % (21-46); MONOCYTES ABSOLUTE AUTO 0.34 K/mm3 (0.16-1.47); MONOCYTES PERCENT AUTO 3 % (4-13); Mean Corpuscular HGB 29.3 pg (26.0-34.0); Mean Corpuscular HGB Conc 33.8 g/dL (31.5-36.5); Mean Corpuscular Volume 87 fL (80-100); NEUTROPHILS ABSOLUTE AUTO 10.35 K/mm3 (1.96-9.15); NEUTROPHILS PERCENT AUTO 87 % (41-73); Platelet Count 203 K/mm3 (150-400); RDW Coefficient Variation 12.9 % (11.7-14.2); RDW Standard Deviation 41.2 fL (35.1-46.3); Red Blood Cell Count 4.03 M/mm3 (4.30-5.90); White Blood Cell Count 11.88 K/mm3 (4.00-11.30)
[2021-05-13 04:24] LABS: Albumin, Blood 1.7 g/dL (3.4-5.0); Anion Gap 3 mmol/L (6-16); Blood Urea Nitrogen 44 mg/dL (8-24); Bun/Creatinine Ratio 44.8 (12.0-20.0); CO2, Blood 32 mmol/L (21-32); Chloride, Blood 97 mmol/L (98-108); Creatinine, Blood 0.98 mg/dL (0.60-1.20); Glomerular Filtration Rate >60 (60-); Glucose, Blood 329 mg/dL (70-99); Phosphorus, Blood 1.9 mg/dL (2.5-4.9); Potassium, Blood 4.1 mmol/L (3.5-5.5); Sodium, Blood 132 mmol/L (136-145)
--- NOTE | 2021-05-13 05:54 | NUR ---
EMBOSSED OR IMPRESSED LETTERING PAINTER SUUMARY PT MAINTAINED O2 SATS >90% ON 60% FIO2 FOR MOST OF THE SHIFT. THE PT DID HAVE TWO EPSIODES WHEN BEING BOOSTED AND TURNED WHERE HE BEGAN TO COUGH AND DESATURATE LOW 75% WHERE HE WAS THEN GIVEN A BRIEF MOMENT OF 100% FIO2 TO WHICH HE RECOVERED TO >92% FIO2. HR HAS BEEN SR IN THE 80'S W OCCASIONAL PVC'S. BP WNL THIS SHIFT. PT AFEBRILE W PEAK TEMP AT 96.5. NO BM THIS SHIFT AND MILK OF MAG GIVEN AT 2100 W NO SUCCESS. CONTINUOUS FEED RUNNING AT 20ML/HR ALL SHIFT W RESIDUALS BEING <175ML. PROPOFOL AT 70 ALL SHIFT W THE FENTANYL PACKAGE DYE STAND LOADER REMAINING AT 50MCG/HR. LS VERY COARSE BUT SOUND MUCH MORE CLEAR THIS AM. PT NOT PRONED THIS SHIFT. WILL REPORT TO ONCOMING RN.
--- NOTE | 2021-05-13 07:30 | NUR ---
Received report from Anraldo JULIEN. Patient is intubated and sedated. He has 8.0 ET and is 25 cm at teeth with vent settings of 22/440/60/12 and sats of 93%.He has OG in place and VHP at 20ml/hr and 30 ml water flushes Q4 with low residuals. He has LIJ dressing intact and site WNL's and is infusing Propofol at 70 mcg/kg/min, NS TKO, Fentanyl 50 mcg/hr. He has 16Fr Sauer draining to gravity yellow urine. He has bilateral soft wrist restraints r/t pulling and lines and tubes and patient safety.
--- NOTE | 2021-05-13 09:30 | NUR ---
Dr Miller and Dr Burton were in assessing patient and no changes. Repositioned patient. No vent or gtt setting. Patient continues to have thick ET secretions and frequent coughing.
--- NOTE | 2021-05-13 11:30 | NUR ---
No significant changes with vent settings or gtt's. Am meds done and given through OG. Dr Miller has re-assessed and continued no changes. Propofol remains at 70 mcg/kg/min, Fentanyl at 50 mcg/hr.
--- NOTE | 2021-05-13 13:30 | NUR ---
Patient getting anxiuos and started to Desat, suctioned and medicated per MAR and is slowly increasing currently 91%. Vent settings still 22/440/60/12. He remaons ST 100's. TF continue and low residual >50 ml's.
--- NOTE | 2021-05-13 17:30 | NUR ---
No real significant changes today. There has not been any vent changes and settings of 22/440/60/12 and sats low 90%'s. Propofol remaisn at 70 mcg/kg/min, Fentanyl 50mcg/hr, NS TKO. VHP continues 20 ml/hr and 30 ml water flushes Q4. Sauer good output.
--- NOTE | 2021-05-13 20:15 | NUR ---
CARE ASSUMPTION PT IS INTUBATED W 8.0 ET TUBE THAT RESTS 25 AST THE TEETH- CONFIRMED W RT. O2 SATS >92% W A PEEP OF 12 AND FIO2 AT 75%. BP WNL AND HR IS SR IN THE 90'S. PT AFEBRILE W A TEMPORAL TEMP OF 96.9. PT RESTIONG COMFORTABLY W PROPOFOL AT 70 AND FENTANYL DESIGN ENG AT 50MCG/HR. PLAN IS TO PRONE THIS SHIFT
[2021-05-14 03:59] LABS: BASOPHILS ABSOLUTE AUTO 0.06 K/mm3 (0.00-0.23); BASOPHILS PERCENT AUTO 1 % (0-2); EOSINOPHILS ABSOLUTE AUTO 0.43 K/mm3 (0.00-0.68); EOSINOPHILS PERCENT AUTO 3 % (0-6); Hematocrit 36.2 % (37.0-53.0); Hemoglobin 12.2 g/dL (13.5-17.5); IMMATURE GRAN ABSOLUTE AUTO 0.48 K/mm3 (0.00-0.10); IMMATURE GRAN PERCENT AUTO 4 % (0-1); LYMPHOCYTES ABSOLUTE AUTO 0.64 K/mm3 (0.84-5.20); LYMPHOCYTES PERCENT AUTO 5 % (21-46); MONOCYTES ABSOLUTE AUTO 0.34 K/mm3 (0.16-1.47); MONOCYTES PERCENT AUTO 3 % (4-13); Mean Corpuscular HGB 29.2 pg (26.0-34.0); Mean Corpuscular HGB Conc 33.7 g/dL (31.5-36.5); Mean Corpuscular Volume 87 fL (80-100); Mean Platelet Volume 11.5 fL (9.1-12.4); NEUTROPHILS ABSOLUTE AUTO 10.71 K/mm3 (1.96-9.15); NEUTROPHILS PERCENT AUTO 85 % (41-73); Platelet Count 215 K/mm3 (150-400); RDW Coefficient Variation 13.2 % (11.7-14.2); RDW Standard Deviation 41.9 fL (35.1-46.3); Red Blood Cell Count 4.18 M/mm3 (4.30-5.90); White Blood Cell Count 12.66 K/mm3 (4.00-11.30)
[2021-05-14 04:21] LABS: Albumin, Blood 1.8 g/dL (3.4-5.0); Anion Gap 1 mmol/L (6-16); Blood Urea Nitrogen 46 mg/dL (8-24); Bun/Creatinine Ratio 48.8 (12.0-20.0); CO2, Blood 34 mmol/L (21-32); Calcium, Blood 9.4 mg/dL (8.5-10.1); Chloride, Blood 100 mmol/L (98-108); Creatinine, Blood 0.94 mg/dL (0.60-1.20); Glomerular Filtration Rate >60 (60-); Glucose, Blood 192 mg/dL (70-99); Phosphorus, Blood 2.5 mg/dL (2.5-4.9); Sodium, Blood 135 mmol/L (136-145); Triglycerides 216 mg/dL (30-160)
--- NOTE | 2021-05-14 06:17 | NUR ---
SCOREKEEPER SUMMARY NO MAJOR EVENTS THIS SHIFT. PT HAS MAINTAINED O2 SATS >90% ON 75% FIO2 W A PEEP OF 12. LS HAVE BEEN CLEAR THIS SHIFT. BP SOFT THIS SHIFT BUT HAS MAINTAINED A MAP >65 ALL SHIFT. PT'S HR WAS SR IN THE 90'S AT THE START OF THE SHIFT BUT BECAME ST IN THE 100'S IN THE MIDDLE OF THE NIGHT. LOW URINE OUTPUT THIS SHIFT W 400MLS OF URINE OUT. NO BM THIS SHIFT MILK OF MAG GIVEN AT 2100. PT AFEBRILE THIS SHIFT W PEAK TEMP OF 97.4. PT DOUBLE STACKING HIS RESP ON THE VENT THIS SHIFT SO ORDER FOR PRN ATIVAN AND FENTANYL PUSH OBTAINED W VERY LITTLE EFFECT ON RESPIRATIONS. ET TUBE REMAINS 26 AT THE LIP. VENT SETTINGS UNCHANGED AT 22/440/75/12. OG TUBE RUNNING CONTINUOUS FEED AT 20ML/HR W A 30ML Q4H FLUSH, RESIDUALS <120 THIS SHIFT. WILL REPORT TO ONCOMING RN.
--- NOTE | 2021-05-14 07:37 | NUR ---
REceived report from Arnaldo JULIEN. Patient is proned,intubated, sedated. He has 8.0 ET and is 25 cm at teeth with vent settings 22/44/75/12 and sats 94%. He has consistenting coughing and breathing over the vent. He has LIJ dressing intact and site WNL's and is infusing Propol at 75 mcg/kg/min, Fentanyl at 50 mcg/hr and NS TKO. He has 16 Fr simons draining to gravity. He is in bilateral soft wrist restraints. He has OG in place and is infusing VHP at 20 ml/hr goal rate and 30 ml water flushes Q4.
--- NOTE | 2021-05-14 10:25 | NUR ---
Patient tolertaed meds through OG and IV. He remains proned. TF continue low residuals. No chnages to vent settings and gtt's post Dr Chowdhury assessment.
--- NOTE | 2021-05-14 12:30 | NUR ---
Patient unproned and tolerated change with sats in the 90's VSS, See EMR. Propofol at 75 mcg/kg/min and sedated well , he does stack breath and coughs frequently. Thick yu secretions from ET. He remains in restraints.
--- NOTE | 2021-05-14 15:30 | NUR ---
Vent setings 20/440/90/12. He has cuff leak with positioning. TF continues at 20 ml/hr and 30 ml water flushes Q4. Propofol remains at 75 mcg/kg/min. He tolerates positioning. He has moderate urine out put through simons.
--- NOTE | 2021-05-14 18:00 | NUR ---
No significant changes with patient. he will be proned on Noc shift. Vent settings remains at 22/440/90/17 and sats low 90's. VSS, See EMR. 900 mlamber urine. CBG 288 and coverage per MAR. OG remains infusing at 20 ml/hr pivot 1.5 30 ml water flushes
[2021-05-15 05:26] LABS: BASOPHILS ABSOLUTE AUTO 0.05 K/mm3 (0.00-0.23); BASOPHILS PERCENT AUTO 0 % (0-2); EOSINOPHILS ABSOLUTE AUTO 0.25 K/mm3 (0.00-0.68); EOSINOPHILS PERCENT AUTO 2 % (0-6); Hematocrit 35.1 % (37.0-53.0); Hemoglobin 11.8 g/dL (13.5-17.5); IMMATURE GRAN ABSOLUTE AUTO 0.47 K/mm3 (0.00-0.10); IMMATURE GRAN PERCENT AUTO 4 % (0-1); LYMPHOCYTES ABSOLUTE AUTO 0.48 K/mm3 (0.84-5.20); LYMPHOCYTES PERCENT AUTO 4 % (21-46); MONOCYTES ABSOLUTE AUTO 0.35 K/mm3 (0.16-1.47); MONOCYTES PERCENT AUTO 3 % (4-13); Mean Corpuscular HGB 29.6 pg (26.0-34.0); Mean Corpuscular HGB Conc 33.6 g/dL (31.5-36.5); Mean Corpuscular Volume 88 fL (80-100); Mean Platelet Volume 11.8 fL (9.1-12.4); NEUTROPHILS PERCENT AUTO 88 % (41-73); Platelet Count 211 K/mm3 (150-400); RDW Coefficient Variation 13.3 % (11.7-14.2); RDW Standard Deviation 43.2 fL (35.1-46.3); Red Blood Cell Count 3.98 M/mm3 (4.30-5.90)
[2021-05-15 06:13] LABS: Anion Gap 6 mmol/L (6-16); Blood Urea Nitrogen 53 mg/dL (8-24); Bun/Creatinine Ratio 53.3 (12.0-20.0); CO2, Blood 29 mmol/L (21-32); Calcium, Blood 9.2 mg/dL (8.5-10.1); Chloride, Blood 97 mmol/L (98-108); Creatinine, Blood 0.99 mg/dL (0.60-1.20); Glomerular Filtration Rate >60 (60-); Glucose, Blood 258 mg/dL (70-99); Magnesium, Blood 2.5 mg/dL (1.6-2.4); Potassium, Blood 4.4 mmol/L (3.5-5.5); Sodium, Blood 132 mmol/L (136-145)
--- NOTE | 2021-05-15 08:41 | NUR ---
Assumed care of pt at 0700 with Soraya RN. Drips: Propofol 75 mcg/kg/min Fentanyl 50 mcg/hr Vent: 8.0 cm ETT, 24 cm at teeth. ACVC 22/440/12/60%. Positioning: Prone positioning with pillows under left shoulder and hip. Reverse trendelenberg. See shift assessement for additional details.
--- NOTE | 2021-05-15 14:39 | NUR ---
Pt changed from prone positioning to supine positioning at 1210. Required FiO2 increased to 80%. Current vent settings ACVC 22/440/12/80%.
--- NOTE | 2021-05-15 17:33 | NUR ---
SUMMARY Neuro: Sedated with propofol at 75 mcg/kg/min. Responsive to painful to stimulus. PERRL. Subtle movement noted to all extremities. Musculoskeletal: Limited by cords, lines, tubes, restraint, generalized weakness and deconditioning. Pt in supine position with elevated HOB. Reposition Q2H. Cardiac: SR per monitor. BP stable. 1+ radial, pedal, post tibial pulses. Trace edema BUE and BLE. Capillary refill less than 3 seconds BUE and BLE. Unremarkable heart sounds. Respiratory: 8.0 cm ETT, 24 cm at teeth. Vent settings ACVC 22/440/12/70%. SpO2 90% or greater. Lungs coarse bilat bases, diminished otherwise. GI: OG tube with goal feed and flush per orders. Stable residuals. Hypoactive BT. 2 BMs today. : Sauer catheter in place with excellent urine output. Skin: Scattered scabs surrouding securement device for ETT. Otherwise, skin C/D/I. Psychosocial: Spouse updated by Dr Miller.
--- NOTE | 2021-05-15 21:10 | NUR ---
SHIFT ASSESSMENT ASSUMED CARE OF PT @ 1900. PT INTUBATED AND SEDATED. PROPOFOL GTT @ 75MCG'S, FENTANYL TRANSITIONAL CARE MANAGER @ 50MCG'S. VENT SETTINGS-ACVC: 22/440/80/12 c O2 SATS >90%. TF @ GOAL. SARAY SOFT RESTRAINTS IN PLACE. CRUZ CATH DRAINING CLOUDY, YELLOW URINE. PT PRONED WITHOUT INCIDENT @ 1999.
[2021-05-16 03:38] LABS: Hematocrit 33.2 % (37.0-53.0); Hemoglobin 10.9 g/dL (13.5-17.5); Mean Corpuscular HGB 28.7 pg (26.0-34.0); Mean Corpuscular HGB Conc 32.8 g/dL (31.5-36.5); Mean Corpuscular Volume 87 fL (80-100); Mean Platelet Volume 11.7 fL (9.1-12.4); Platelet Count 191 K/mm3 (150-400); RDW Coefficient Variation 13.3 % (11.7-14.2); RDW Standard Deviation 42.6 fL (35.1-46.3); White Blood Cell Count 10.55 K/mm3 (4.00-11.30)
[2021-05-16 04:03] LABS: Anion Gap 4 mmol/L (6-16); Blood Urea Nitrogen 54 mg/dL (8-24); Bun/Creatinine Ratio 56.9 (12.0-20.0); CO2, Blood 31 mmol/L (21-32); Calcium, Blood 9.4 mg/dL (8.5-10.1); Chloride, Blood 97 mmol/L (98-108); Creatinine, Blood 0.95 mg/dL (0.60-1.20); Glomerular Filtration Rate >60 (60-); Glucose, Blood 272 mg/dL (70-99); Magnesium, Blood 2.4 mg/dL (1.6-2.4); Phosphorus, Blood 2.8 mg/dL (2.5-4.9); Potassium, Blood 3.9 mmol/L (3.5-5.5); Sodium, Blood 132 mmol/L (136-145)
[2021-05-16 05:47] LABS: BAND PERCENT MAN 7 % (0-8); BASOPHILS PERCENT MAN 0 % (0-2); EOSINOPHILS ABSOLUTE MAN 0.21 K/mm3 (0.00-0.68); EOSINOPHILS PERCENT MAN 2 % (0-6); LYMPHOCYTES ABSOLUTE MAN 0.21 K/mm3 (0.84-5.20); LYMPHOCYTES PERCENT MAN 2 % (21-46); MONOCYTES ABSOLUTE MAN 0.52 K/mm3 (0.16-1.47); MONOCYTES PERCENT MAN 5 % (4-13); MYELOCYTE PERCENT MAN 1 % (0-0); NEUTROPHILS ABSOLUTE MAN 9.49 K/mm3 (1.96-9.15); SEG NEUTROPHILS PERCENT MAN 83 % (41-73); TOTAL CELLS COUNTED 100
--- NOTE | 2021-05-16 06:21 | NUR ---
SHIFT SUMMARY PT REMAINS INTUBATED, SEDATED, AND PRONED. FIO2 TITRATED DOWN TO 70% WHILE PRONE c O2 SATS >90%. PROPOFOL @ 75MCG/KG/MIN, FENTANYL MOLD PRESS OPERATOR @ 50MCG/HR. TF CONTINUES @ GOAL, RESIDUALS <100CC. NO SIGNIFICANT CHANGES TO PT CONDITION.
--- NOTE | 2021-05-16 09:50 | NUR ---
PT MEDS AND FEEDS HELD. THIS RN MEASURED 100 ML RESIDUAL, REINSTILLED, AND LIQUID OF SAME QUALITY IMMEDIATELY CAME FROM PT'S MOUTH. UNCLEAR IF OG TUBE IS IN CORRECT PLACEMENT. PLAN TO OBTAIN CXR WHEN PT IS SUPINE. DR PENA AWARE.
--- NOTE | 2021-05-16 10:01 | NUR ---
Assumed care of pt at 0700 with Soraya RN. Drips: Propofol 75 mcg/kg/min Fentanyl 50 mcg/hr Vent: 8.0 cm ETT, 24 cm at teeth. ACVC 22/440/12/60%. Positioning: Prone positioning with pillows absent. Reverse trendelenberg. See shift assessement for additional details.
--- NOTE | 2021-05-16 12:30 | NUR ---
Changed from prone positioning to supine. Pt tolerated repositioning well.
--- NOTE | 2021-05-16 18:51 | NUR ---
This afternoon, pt's oxygen requirements have increased. RT and Dr Miller aware. Neuro: Sedated with propofol at 75 mcg/kg/min. Responsive to painful to stimulus. PERRL. Subtle movement noted to all extremities. Musculoskeletal: Limited by cords, lines, tubes, restraint, generalized weakness and deconditioning. Pt in supine position with elevated HOB. Reposition Q2H. Cardiac: ST per monitor, 1st degree HB and BBB. BP stable. 1+ radial, pedal, post tibial pulses. Trace edema BUE and BLE. Capillary refill less than 3 seconds BUE and BLE. Unremarkable heart sounds. Respiratory: 8.0 cm ETT, 24 cm at teeth. Vent settings ACVC 25/440/12/90%. SpO2 90% or greater. Lungs clear, diminished bases. GI: OG tube with goal feed and flush per orders. Stable residuals. Hypoactive BT. 2 BMs today. : Sauer catheter in place with excellent urine output. Skin: Scattered scabs surrouding securement device for ETT. Otherwise, skin C/D/I. Psychosocial: Spouse updated by this RN.
--- NOTE | 2021-05-16 20:15 | NUR ---
ASSUMPTION OF CARE PT REMAINS INTUBATED WITH VENT SETTINGS 25/440/12/90% WITH SPO2 >92%. PT RECEIVING PROPOFOL 75MCG/KG/MIN AND FENTANYL 50MCG/HR. TUBE FEEDING INFUSING AT GOAL RATE. BOWEL TONES HYPOACTIVE. CRUZ REMAINS IN PLACE DRAINING KHRIS URINE. SEE SHIFT ASSESSMENT.
[2021-05-17 03:46] LABS: BASOPHILS ABSOLUTE AUTO 0.03 K/mm3 (0.00-0.23); BASOPHILS PERCENT AUTO 0 % (0-2); EOSINOPHILS ABSOLUTE AUTO 0.56 K/mm3 (0.00-0.68); EOSINOPHILS PERCENT AUTO 6 % (0-6); Hematocrit 32.7 % (37.0-53.0); Hemoglobin 10.9 g/dL (13.5-17.5); IMMATURE GRAN ABSOLUTE AUTO 0.26 K/mm3 (0.00-0.10); IMMATURE GRAN PERCENT AUTO 3 % (0-1); LYMPHOCYTES ABSOLUTE AUTO 0.61 K/mm3 (0.84-5.20); LYMPHOCYTES PERCENT AUTO 7 % (21-46); MONOCYTES ABSOLUTE AUTO 0.43 K/mm3 (0.16-1.47); MONOCYTES PERCENT AUTO 5 % (4-13); Mean Corpuscular HGB 29.5 pg (26.0-34.0); Mean Corpuscular HGB Conc 33.3 g/dL (31.5-36.5); Mean Corpuscular Volume 89 fL (80-100); Mean Platelet Volume 11.9 fL (9.1-12.4); NEUTROPHILS ABSOLUTE AUTO 7.55 K/mm3 (1.96-9.15); NEUTROPHILS PERCENT AUTO 80 % (41-73); Platelet Count 192 K/mm3 (150-400); RDW Coefficient Variation 13.4 % (11.7-14.2); RDW Standard Deviation 43.2 fL (35.1-46.3); Red Blood Cell Count 3.69 M/mm3 (4.30-5.90); White Blood Cell Count 9.44 K/mm3 (4.00-11.30)
[2021-05-17 04:00] LABS: Albumin, Blood 1.6 g/dL (3.4-5.0); Anion Gap 3 mmol/L (6-16); Blood Urea Nitrogen 53 mg/dL (8-24); CO2, Blood 33 mmol/L (21-32); Calcium, Blood 9.8 mg/dL (8.5-10.1); Chloride, Blood 98 mmol/L (98-108); Creatinine, Blood 0.96 mg/dL (0.60-1.20); Glomerular Filtration Rate >60 (60-); Glucose, Blood 209 mg/dL (70-99); Phosphorus, Blood 2.6 mg/dL (2.5-4.9); Potassium, Blood 3.8 mmol/L (3.5-5.5); Sodium, Blood 134 mmol/L (136-145)
--- NOTE | 2021-05-17 06:18 | NUR ---
SHIFT SUMMARY PT REMAINS INTUBATED. VENT SETTINGS 25/440/12/90%. PT PRONED LAST NIGHT AND IS TOLERATING WELL WITH SPO2 >95%. PT HR 100S-110S, WITH BBB AND 1 DEGREE AV BLOCK. TUBE FEEDING INFUSING VIA OGT AT GOAL RATE. PT RECEIVING PROPOFOL 75MCG/KG/MIN AND FENTANYL 50MCG/HR. CRUZ REMAINS IN PLACE WITH SHIFT OUTPUT OF 800ML. URINE IS KHRIS WITH SEDIMENT. WILL REPORT TO ONCOMING RN.
--- NOTE | 2021-05-17 09:18 | NUR ---
ASSUMED CARE REPORT FROM OTILIO JULIEN AT 0700. PT INTUBATED AND SEDATED. VENT SETTINGS AC/VC 25/440/12/70%. PT IN PRONE POSITION. LUNGS CLEAR. BREATHING OVER VENT, O2 SATS MID 90'S. HEAD TURNED, SIGNIFICANT FACIAL AND SCLERA EDEMA NOTED. FACE FLUSHED. AFEBRILE. PROPOFOL AND FENTANYL GTT FOR SEDATION AND PAIN. NO RESPONSE TO PAINFUL STIMULI. HYPOACTIVE BT. TUBE FEEDS AT GOAL, 20 ML/HR c 30 ML FLUSH q4 HR. CVC TO LEFT SC. CRUZ PATENT, DRAINING CLEAR KHRIS URINE TO GRAVITY. MEDICATED FOR HTN EARLIER IN SHIFT, BP STABLE AT THIS TIME. ST, RATE 110'S ON MONITOR. WILL CONTINUE TO MONITOR.
--- NOTE | 2021-05-17 17:40 | NUR ---
SHIFT SUMMARY PT REMAINS INTUBATED AND SEDATED. VENT SETTINGS AC/VC+ 25/440/12/65%. LUNGS DIM IN BASES. PT SUPINE AT 1230. TOLERATED WELL. PROPOFOL AND FENTANYL GTT INFUSING. NO RESPONSE TO PAINFUL STIMULI c REDUCTION OF SEDATION. CONTINUING TO TITRATE PROPOFOL. TUBE FEEDS CONTINUE AT GOAL. CRUZ PATENT, DRAINING CLEAR YELLOW URINE TO GRAVITY. CVC TO L SUBCLAVIAN. BP STABLE. WILL CONTINUE TO MONITOR UNTIL REPORT TO ONCOMING NURSE.
--- NOTE | 2021-05-17 20:36 | NUR ---
ASSUMPTION OF CARE PT REMAINS INTUBATED. VENT SETTINGS 25/440/12/75%. PT TOLERATING VENT WELL. RT REPOSITIONED ETT. PT RECEIVING PROPOFOL 40MCG/KG/MIN, AND FENTANYL 50MCG/HR. PT PRONED, TOLERATED WELL. SPO2 REMAINS >92%. TUBE FEEDING INFUSING AT GOAL RATE. CRUZ REMAINS IN PLACE DRAINING YELLOW/PINK URINE. SEE SHIFT ASSESSMENT.
[2021-05-18 03:26] LABS: BASOPHILS ABSOLUTE AUTO 0.04 K/mm3 (0.00-0.23); BASOPHILS PERCENT AUTO 0 % (0-2); EOSINOPHILS PERCENT AUTO 0 % (0-6); Hematocrit 35.4 % (37.0-53.0); Hemoglobin 11.7 g/dL (13.5-17.5); IMMATURE GRAN PERCENT AUTO 2 % (0-1); LYMPHOCYTES ABSOLUTE AUTO 0.45 K/mm3 (0.84-5.20); LYMPHOCYTES PERCENT AUTO 5 % (21-46); MONOCYTES ABSOLUTE AUTO 0.27 K/mm3 (0.16-1.47); MONOCYTES PERCENT AUTO 3 % (4-13); Mean Corpuscular HGB Conc 33.1 g/dL (31.5-36.5); Mean Corpuscular Volume 88 fL (80-100); Mean Platelet Volume 12.3 fL (9.1-12.4); NEUTROPHILS ABSOLUTE AUTO 9.14 K/mm3 (1.96-9.15); NEUTROPHILS PERCENT AUTO 90 % (41-73); Platelet Count 231 K/mm3 (150-400); RDW Coefficient Variation 13.3 % (11.7-14.2); RDW Standard Deviation 43.1 fL (35.1-46.3); Red Blood Cell Count 4.03 M/mm3 (4.30-5.90)
[2021-05-18 03:40] LABS: Albumin, Blood 1.7 g/dL (3.4-5.0); Anion Gap 4 mmol/L (6-16); Blood Urea Nitrogen 56 mg/dL (8-24); Bun/Creatinine Ratio 60.9 (12.0-20.0); CO2, Blood 33 mmol/L (21-32); Chloride, Blood 96 mmol/L (98-108); Creatinine, Blood 0.92 mg/dL (0.60-1.20); Glomerular Filtration Rate >60 (60-); Glucose, Blood 393 mg/dL (70-99); Sodium, Blood 133 mmol/L (136-145)
--- NOTE | 2021-05-18 06:10 | NUR ---
SHIFT SUMMARY PT REMAINS INTUBATED. VENT SETTINGS 25/440/12/75%, TOLERATING WELL WITH SPO2 >93%. PRONED LAST NIGHT AND TOLERATING WELL. PT RECEIVING PROPOFOL 50MCG/KG/MIN AND FENTANYL 50MCG/HR. PT GRIMACES AND LOCALIZES WITH STERNAL RUB, DOES NOT FOLLOW VERBAL COMMANDS. HR REMAINS IN 110S WITH SBP 120S-170S. TUBE FEEDING CONTINUES TO INFUSE. BOWEL TONES HYPOACTIVE. SMALL SMEAR BM THIS SHIFT. CRUZ REMAINS IN PLACE DRAINING YELLOW URINE THAT HAD PINK TINGE AT BEGINNING OF SHIFT. SHIFT OUTPUT 1700ML. CBGS CONTINUE TO BE HIGH. CALLED HOSPITALIST AND GIVEN ORDER TO INCREASE SEMGLEE. WILL REPORT TO ONCOMING RN.
--- NOTE | 2021-05-18 17:35 | NUR ---
SHIFT SUMMARY NO ACUTE CHANGES THIS SHIFT. PT HAS REMAINED INTUBATED AND SEDATED. VENT SETTINGS UNCHANGED AT AC 25, TV 440, PEEP 12, FIO2 75%. PT UNPRONED AT 1200, PT MAINTAINED SPO2 >92%. PT WITH MINIMAL ETT SECRETIONS THIS SHIFT. PT SEDATED WITH PROPOFOL AT 60 MCG/KG/MIN AND FENTANYL GTT AT 50 MCG/HR. OGT IN PLACE WITH MINIMAL RESIDUALS THIS SHIFT. TF INFUSING AT 20 ML/HR. CENTRAL LINE TO LEFT SUBCLAVIAN C/D/I. CRUZ REMAINS IN PLACE WITH YELLOW URINE OUTPUT NOTED THIS SHIFT. SBW RESTRAINTS IN PLACE. VITAL SIGNS STABLE. PT WITH SMALL REDDENED AREA ON CHIN NOTED AFTER REPOSITIONING PT SUPINE. PT FAMILY UPDATED VIA PHONE THIS SHIFT. WILL CONTINUE TO MONITOR AND REPORT OFF TO ONCOMING RN.
--- NOTE | 2021-05-18 19:45 | NUR ---
ASSESSMENT/ASSUMED CARE PT INTUBATED AND ON MECH VENT. BILAT SOFT WRIST RESTRAINT ON. LUNGS DECREASED T/O. VENT SETTINGS AC/VC 25 440 12 FIO2 70%. RT RETAPPING ET TUBE. SKIN TEARS NOTED TO BILAT CHEEKS, FOAM DRSG APPLIED. SUCTIONED SMALL AMT VIA ET TUBE. HEART RATE REGULAR. BP STABLE. BT+HYPOACTIVE. TUBE FEED VITAL HP AT 20 ML/HR, WATER 30 ML Q4HR. RESIDUAL ZERO. CENTRAL LINE LEFT SC DRSG INTACT. PROPOFOL AT 60 MCQ/KG/MIN, NS AT 10 ML/HR WITH FENTANYL 50MCQ/HR.
--- NOTE | 2021-05-18 23:56 | NUR ---
BLOOD GLUCOSE BLOOD GLUCOSE 394, [address] ALVAREZ NOTIFIED. NO NEW ORDERS AT THIS TIME. PT RECEIVED 50 UNITS SEMGLEE AT 2029.
[2021-05-19 03:57] LABS: BASOPHILS ABSOLUTE AUTO 0.03 K/mm3 (0.00-0.23); BASOPHILS PERCENT AUTO 0 % (0-2); EOSINOPHILS ABSOLUTE AUTO 0.02 K/mm3 (0.00-0.68); EOSINOPHILS PERCENT AUTO 0 % (0-6); Hematocrit 33.9 % (37.0-53.0); Hemoglobin 11.2 g/dL (13.5-17.5); IMMATURE GRAN ABSOLUTE AUTO 0.24 K/mm3 (0.00-0.10); IMMATURE GRAN PERCENT AUTO 2 % (0-1); LYMPHOCYTES ABSOLUTE AUTO 0.47 K/mm3 (0.84-5.20); LYMPHOCYTES PERCENT AUTO 4 % (21-46); MONOCYTES ABSOLUTE AUTO 0.59 K/mm3 (0.16-1.47); MONOCYTES PERCENT AUTO 6 % (4-13); Mean Corpuscular Volume 88 fL (80-100); Mean Platelet Volume 12.3 fL (9.1-12.4); NEUTROPHILS ABSOLUTE AUTO 9.44 K/mm3 (1.96-9.15); NEUTROPHILS PERCENT AUTO 87 % (41-73); Platelet Count 240 K/mm3 (150-400); RDW Coefficient Variation 13.5 % (11.7-14.2); RDW Standard Deviation 43.2 fL (35.1-46.3); Red Blood Cell Count 3.86 M/mm3 (4.30-5.90); White Blood Cell Count 10.79 K/mm3 (4.00-11.30)
[2021-05-19 04:19] LABS: Albumin, Blood 1.7 g/dL (3.4-5.0); Anion Gap 3 mmol/L (6-16); Blood Urea Nitrogen 58 mg/dL (8-24); Bun/Creatinine Ratio 72.9 (12.0-20.0); CO2, Blood 33 mmol/L (21-32); Calcium, Blood 10.5 mg/dL (8.5-10.1); Chloride, Blood 100 mmol/L (98-108); Glomerular Filtration Rate >60 (60-); Glucose, Blood 380 mg/dL (70-99); Phosphorus, Blood 2.4 mg/dL (2.5-4.9); Potassium, Blood 3.6 mmol/L (3.5-5.5); Sodium, Blood 136 mmol/L (136-145)
--- NOTE | 2021-05-19 06:19 | NUR ---
SHIFT SUMMARY PT CONT INTUBATED AND ON [facility] VENT. CURRENT VENT SETTINGS AC/VC 25/440/12/50%. PT PRONED. MED WITH HYDRALAZINE ONCE DURING THE NIGHT FOR HTN WITH GOOD RESULTS. TUBE FEED AT GOAL. VITAL HP AT 20 ML/HR, WATER 30 ML Q4HR. PT TURNED Q2HRS. ORAL CARE DONE Q4HR. VSS. CENTRAL LINE TO LEFT SC DRSG INTACT. PT RECEIVING KPHOS DUE TO LOW PHOS. DRSG TO RIGHT EAR FOR BREAKDOWN. REPORT TO ON COMING NURSE
--- NOTE | 2021-05-19 07:40 | NUR ---
ASSUMED CARE: REPORT RECEIVED FROM POPPY Aponte RN & ARABELLA Miranda RN. ASSUMED CARE OF THIS PT AT APPROX 0700. ON ASSESSMENT, THE PT IS SEDATED W/ PROPOFOL & FENTANYL. LS ARE DIM & WHEEZING T/O, VENT SETTINGS: AC/VC 25/440/12/50% W/ O2 SATS > 90% ON AVG. MONITOR SHOWS SR W/ PACs, HR 70-80s. HTN W/ SCHEDULED AM MEDS PER EMAR. OGT IN PLACE W/ TUBE FEEDS INFUSING AT GOAL RATE, LOW RESIDUALS. NO BM, BOWEL CARE PER EMAR. CRUZ PATENT/ DRAINING YELLOW URINE. SKIN CONDITION OVERALL FRAGILE W/ DRESSINGS CDI TO BILAT CHEEKS & EARS R/T SKIN BREAKDOWN. WILL CONTINUE TO MONITOR & UPDATE NEEDED.
--- NOTE | 2021-05-19 18:01 | NUR ---
Received word that pt's was feeling discouraged, asked if [facility] could call to check in. I placed a call to her this afternoon. When I called her and introduced myself, she immediately began crying. I asked her what was happening. She explained she had read a progress note from an Hospital Pharmacy Technician a couple days ago regarding her 's codition in his electronic chart, and it indicated he was likely "not going to make it". She also stated she had heard something different from another doctor, who was also working on pt's case. She talked about trach, which is something she hadn't discussed previously. Unsure what pt's prognosis; Planning to check in again tomorrow with her, as Dr. Posey appears to think the pt may be a candidate for a trach and peg. Pt remaiins on ventilation for now.
--- NOTE | 2021-05-19 18:16 | NUR ---
SHIFT SUMMARY: NO ACUTE CHANGES SINCE PRIOR UPDATES. PT REMAINS SEDATED W/ PROPOFOL & FENTANYL, RESTING QUIETLY. LS ARE DIM T/O, VENT SETTINGS: AC/VC 25/440/12/50% W/ O2 SATS > 90%. MONITOR SHOWS SR W/ HR 90s, HTN INCREASED W/ STIMULUS. OGT IN PLACE W/ TUBE FEEDS INFUSING AT GOAL RATE, LOW RESIDUALS. CRUZ PATENT/ DRAINING YELLOW URINE. SKIN CONDITION OVERALL FRAGILE, DRESSINGS TO CHEEKS & CHIN HAVE BEEN CHANGED. Q2H REPOSITIONING TO MAINTAIN SKIN INTEGRITY. PT UNPRONED AT APPROX 1200 & HAS BEEN TOLERATING WELL. WILL CONTINUE TO MONITOR & REPORT OFF TO ONCOMING RN.
--- NOTE | 2021-05-19 20:10 | NUR ---
ASSESSMENT/ASSUMED CARE PT CONT INTUBATED AND ON [facility] VENT. LUNGS DECREASED T/O. VENT SETTINGS AC/VC 25/400/12/50%. BILAT SOFT WRIST RESTRAINTS ON. PT REPOSITIONED. ORAL CARE DONE. HEART RATE REGULAR, BP STABLE. BT+HYPOACTIVE. RESIDUAL 100ML REFED. TUBE FEED VIA OG VITAL HP AT GOAL RATE 30ML/HR, WATER 30 ML Q4HR. CENTRAL LINE TO LEFT SC DRSG INTACT. PROPOFOL AT 60 MCQ/KG/MIN, AND FENTANYL 50 MCQ/HR. SLIGHT RED RASH TO NECK/UPPER CHEST, RIGHT FLANK AND BILAT ARMS. CRUZ CATH PATENT DRAINING YELLOW URINE.
[2021-05-20 04:35] LABS: BASOPHILS ABSOLUTE AUTO 0.04 K/mm3 (0.00-0.23); BASOPHILS PERCENT AUTO 0 % (0-2); EOSINOPHILS ABSOLUTE AUTO 0.12 K/mm3 (0.00-0.68); EOSINOPHILS PERCENT AUTO 1 % (0-6); Hematocrit 34.9 % (37.0-53.0); Hemoglobin 11.4 g/dL (13.5-17.5); IMMATURE GRAN ABSOLUTE AUTO 0.23 K/mm3 (0.00-0.10); IMMATURE GRAN PERCENT AUTO 3 % (0-1); LYMPHOCYTES ABSOLUTE AUTO 0.47 K/mm3 (0.84-5.20); LYMPHOCYTES PERCENT AUTO 5 % (21-46); MONOCYTES ABSOLUTE AUTO 0.61 K/mm3 (0.16-1.47); MONOCYTES PERCENT AUTO 7 % (4-13); Mean Corpuscular HGB 28.9 pg (26.0-34.0); Mean Corpuscular HGB Conc 32.7 g/dL (31.5-36.5); Mean Corpuscular Volume 88 fL (80-100); Mean Platelet Volume 12.4 fL (9.1-12.4); NEUTROPHILS ABSOLUTE AUTO 7.82 K/mm3 (1.96-9.15); NEUTROPHILS PERCENT AUTO 84 % (41-73); Platelet Count 272 K/mm3 (150-400); RDW Coefficient Variation 13.9 % (11.7-14.2); Red Blood Cell Count 3.95 M/mm3 (4.30-5.90); White Blood Cell Count 9.29 K/mm3 (4.00-11.30)
[2021-05-20 04:54] LABS: Albumin, Blood 1.9 g/dL (3.4-5.0); Anion Gap 2 mmol/L (6-16); Blood Urea Nitrogen 56 mg/dL (8-24); Bun/Creatinine Ratio 69.8 (12.0-20.0); CO2, Blood 35 mmol/L (21-32); Calcium, Blood 10.5 mg/dL (8.5-10.1); Chloride, Blood 102 mmol/L (98-108); Glomerular Filtration Rate >60 (60-); Glucose, Blood 339 mg/dL (70-99); Potassium, Blood 4.1 mmol/L (3.5-5.5); Sodium, Blood 139 mmol/L (136-145)
--- NOTE | 2021-05-20 06:03 | NUR ---
SHIFT SUMMARY PT CONT INTUBATED AND ON [facility] VENT. NO CHANGES TO VENT DURING THE NIGHT. VENT SETTINGS AC/VC 25/400/12/50%. LUNGS CONT DECREASED. HEART RATE AND BP STABLE. BT+HYPOACTIVE. TUBE FEED AT GOAL VITAL HP 30 ML/HR, WATER 30ML Q4HR. MIN TO MOD RESIDUAL. NO STOOL. CENTRAL LINE TO LEFT SC. PROPOFOL AT 60 MCQ/KG/MIN, NS AT 10 ML/HR, AND FENTANYL 50MCQ/HR. CRUZ CATH PATENT DRAINING YELLOW URINE WITH SEDIMENT. TURNED Q2HRS, ORAL CARE Q4HR. BLOOD GLUCOSE Q6 HR, COVERED WITH INSULIN. REPORT TO ON COMING NURSE
--- NOTE | 2021-05-20 06:20 | NUR ---
ATTEMPTED TO WEIGHT PATIENT, WEIGHT IS NOT ACCURATE AND APPROX 30 KG DIFFERENCE FROM PREVIOUS NIGHT.
--- NOTE | 2021-05-20 08:10 | NUR ---
ASSUMED CARE: REPORT RECEIVED FROM POPPY Aponte RN & ARABELLA Miranda RN. ASSUMED CARE OF THIS PT AT APPROX 0700. ON ASSESSMENT THE PT IS SEDATED W/ PROPOFOL, FENTANYL INFUSING FOR SEDATION ADNJUNCT. PT NOT RESPONSIVE TO PAINFUL STIMULI, GAG & COUGH PRESENT. LS DIM T/O. VENT SETTINGS: AC/VC 25/400/12/50% W/ O2 SATS > 90% ON AVG. MONITOR SHOWS SR W/ PACs, HR 80s. HTN INCREASED W/ INCREASED STIMULUS, SCHEDULED AM ANTIHYPERTENSIVE GIVEN ORDERED. OGT IN PLACE W/ TUBE FEEDS INFUSING AT GOAL RATE, LOW RESIDUALS. NO BM, BOWEL CARE PER EMAR. CRUZ PATENT/ DRAINING YELLOW URINE W/ MOD AMNTS SEDIMENT. SKIN CONDITION OVERALL FRAGILE. DRESSINGS CDI TO BILAT CHEEKS & CHIN. Q2H REPOSITIONING TO MAINTAIN SKIN INTEGRITY. WILL CONTINUE TO MONITOR & UPDATE NEEDED.
--- NOTE | 2021-05-20 09:30 | NUR ---
DR BEYER: PROVIDER AT BEDSIDE TO EVAL PT THIS AM. PEEP DECREASED FROM 12.0 TO 10.0, NO OTHER CHANGES AT THIS TIME.
--- NOTE | 2021-05-20 18:24 | NUR ---
SHIFT SUMMARY: NO ACUTE CHANGES SINCE PRIOR UPDATES. PT REMAINS SEDATED W/ PROPOFOL, FENTANYL INFUSING SEDATION ADJUNCT. LS DIM T/O, VENT SETTINGS: AC/VC+ 25/400/10/50% W/ O2 SATS > 90% ON AVG. MONITOR SHOWS SR-ST W/ PACs & PVCs, HR 80-100s, BP STABLE. ADDITIONAL 12.5 MG METOPROLOL GIVEN & PRN HYDRALAZINE GIVEN x1 W/ HTN IMPROVED. OGT IN PLACE W/ TUBE FEEDS INFUSING AT GOAL RATE, LOW RESIDUALS. NO BM THIS SHIFT, PT PASSING FLATUS. CRUZ PATENT/ DRAINING DARK YELLOW URINE. SKIN CONDITION OVERALL FRAGILE, Q2H REPOSITIONING TO MAINTAIN SKIN INTEGRITY. DRESSINGS TO BILAT CHEEKS CDI, CHIN GUIDE DOG INSTRUCTOR. WILL CONTINUE TO MONITOR & REPORT OFF TO ONCOMING RN.
[2021-05-21 03:42] LABS: Hematocrit 36.3 % (37.0-53.0); Hemoglobin 11.6 g/dL (13.5-17.5); Mean Corpuscular HGB 28.9 pg (26.0-34.0); Mean Corpuscular Volume 91 fL (80-100); Mean Platelet Volume 12.3 fL (9.1-12.4); Platelet Count 289 K/mm3 (150-400); RDW Coefficient Variation 14.2 % (11.7-14.2); RDW Standard Deviation 47.2 fL (35.1-46.3); Red Blood Cell Count 4.01 M/mm3 (4.30-5.90); White Blood Cell Count 9.67 K/mm3 (4.00-11.30)
[2021-05-21 03:57] LABS: Anion Gap 3 mmol/L (6-16); Blood Urea Nitrogen 53 mg/dL (8-24); Bun/Creatinine Ratio 72.8 (12.0-20.0); CO2, Blood 35 mmol/L (21-32); Calcium, Blood 10.4 mg/dL (8.5-10.1); Chloride, Blood 104 mmol/L (98-108); Creatinine, Blood 0.73 mg/dL (0.60-1.20); Glomerular Filtration Rate >60 (60-); Glucose, Blood 312 mg/dL (70-99); Phosphorus, Blood 3.1 mg/dL (2.5-4.9); Potassium, Blood 4.4 mmol/L (3.5-5.5); Sodium, Blood 142 mmol/L (136-145); Triglycerides 239 mg/dL (30-160)
[2021-05-21 04:18] LABS: BAND PERCENT MAN 6 % (0-8); BASOPHILS PERCENT MAN 0 % (0-2); EOSINOPHILS ABSOLUTE MAN 0.19 K/mm3 (0.00-0.68); EOSINOPHILS PERCENT MAN 2 % (0-6); LYMPHOCYTES ABSOLUTE MAN 0.38 K/mm3 (0.84-5.20); LYMPHOCYTES PERCENT MAN 4 % (21-46); MONOCYTES ABSOLUTE MAN 0.67 K/mm3 (0.16-1.47); MONOCYTES PERCENT MAN 7 % (4-13); MYELOCYTE ABSOLUTE MAN 0.09 K/mm3 (0.00-0.00); MYELOCYTE PERCENT MAN 1 % (0-0); NEUTROPHILS ABSOLUTE MAN 8.31 K/mm3 (1.96-9.15); SEG NEUTROPHILS PERCENT MAN 80 % (41-73); TOTAL CELLS COUNTED 100
--- NOTE | 2021-05-21 06:07 | NUR ---
SHIFT SUMMARY PT REMAINS INTUBATED. VENT SETTINGS 25/400/10/50% WITH SPO2 >92%. PT OCCASIONALLY BREATHING OVER VENT, MEDICATED PER EMAR. PT RECEIVING PROPOFOL 60MCG/KG/MIN, AND FENTANYL 50MCG/HR. MINIMAL SECRETIONS. PT GRIMACES DURING SUCTIONING, BUT OTHERWISE IS UNRESPONSIVE. PT DOES NOT LOCALIZE WITH STERNAL RUB. TUBE FEEDING REMAINS INFUSING AT GOAL RATE. BOWEL TONES ACTIVE, NO BM THIS SHIFT. CRUZ REMAINS IN PLACE. SHIFT OUTPUT OF 1450ML. URINE IS YELLOW AND CLEAR. RASH NOTED ON PT'S ABDOMEN AT BEGINNING OF SHIFT. AT END OF SHIFT, RASH DID NOT INCREASE IN SIZE. WILL REPORT TO ONCOMING RN.
--- NOTE | 2021-05-21 08:00 | NUR ---
DR. VASQUEZ UPDATED ON PATIENT STATUS. INFORMED THAT PATIENT HAS RASH TO ABD AND R CHEST. STATES THEY ARE AWARE. NO ORDERS OBTAINED AT THIS TIME.
--- NOTE | 2021-05-21 08:30 | NUR ---
INITIAL ASSESSMENT PATIENT INTUBATED AND SEDATED. PATIENT GRIMACES TO DEEP SUCTIONING; OTHERWISE PATIENT UNRESPONSIVE. NO SIGNS OF PAIN NOTED AT THIS TIME. PATIENT AFEBRILE. PATIENT ON AC 25, TV 400, PEEP 10 AND 50% FIO2. CRACKLES NOTED IN LLL; ALL OTHER LUNG LOBES CLEAR AT THIS TIME. SMALL AMOUNT OF THICK, PRECIADO SECRETIONS NOTED FROM ETT. RR 20S TO 30S. PATIENT IN SR TO ST WITH PVCS. HR 90S TO LOW 100S. SBP 150S TO 170S. 1+ EDEMA NOTED IN BUES AND BLES. ABD SOFT WITH NORMOACTIVE BS NOTED. VHP INFUSING AT GOAL RATE OF 30 MLS/ HOUR WITH 30 ML WATER FLUSH Q4H. RESIDUAL OF 15 MLS REINSTILLED. PRN MOM GIVEN. CRUZ DRAINING DARK YELLOW COLORED URINE. SKIN BREAKDOWN TO CHEEKS AND CHIN; DRESSINGS IN PLACE. SCROTUM RED AND INFLAMED. FACE FLUSHED. SCATTERED BRUISES NOTED. RASH TO ABD AND L CHEST. PROPOFOL INFUSING AT 60 MCG/ KG/ MINUTE, FENTANYL AT 50 MCG/ HOUR, NS TKO. BED LOW. WILL CONTINUE TO MONITOR PATIENT FREQUENTLY THROUGHOUT SHIFT.
--- NOTE | 2021-05-21 11:00 | NUR ---
NO SEDATION VACATION TODAY PER DR. BEYER.
--- NOTE | 2021-05-21 13:22 | NUR ---
PATIENT AFEBRILE. HR 80S TO 1-TEENS. SBP 130S TO 220. PATIENT GIVEN PRN LABETALOL. PATIENT REMAINS ON SAME VENT SETTINGS. RR IN THE 20S. FENTANYL DRIP INCREASED TO 100 MCG/ HOUR AND PROPOFOL DECREASED TO 45 MCG/ KG/ MINUTE. PATIENT GIVEN PRN BENADRYL FOR RASH. BLOOD SUGAR OF 300; COVERAGE GIVEN. VHP TF CHANGED TO NEW GOAL RATE OF 25 MLS/ HOUR. PATIENT APPEARS WITHOUT PAIN OR DISTRESS AT THIS TIME. NO OTHER ACUTE CHANGES TO NOTE ON AT THIS TIME. WILL CONTINUE TO MONITOR.
--- NOTE | 2021-05-21 16:10 | NUR ---
PATIENT AFEBRILE. HR IN THE 80S. SBP IN THE 120S. VENT SETTINGS UNCHANGED. RR 20S TO 30S. WILL CONTINUE TO MONITOR.
--- NOTE | 2021-05-21 18:28 | NUR ---
SHIFT SUMMARY PATIENT REMAINED INTUBATED AND SEDATED. PATIENT GRIMACES TO DEEP SUCTIONING. PATIENT REMAINED AFEBRILE. PROPOFOL ABLE TO BE DECREASED FROM 60 TO 35 MCG/ KG/ MINUTE. FENTANYL INCREASED FROM 50 TO 100 MCG/ HOUR. PATIENT APPEARS CONTENT AT THIS TIME. PATIENT ON AC/VC 25, TV 400, PEEP 10, 50% FIO2 DECREASED TO 45%. RR 20S TO 30S. ETT SECRETIONS SMALL, THICK AND PRECIADO. PATIENT SR TO ST WITH PVCS. HR 80S TO LOW 100S. SBP LOW 100S TO 220. VHP AT GOAL RATE OF 25 MLS/ HOUR. PRN MOM GIVEN. PATIENT HAD ONE SMALL, BROWN, LIQUID STOOL. NO CHANGES TO SKIN. PATIENT REPOSITIONED T/O SHIFT. BLOOD SUGARS IN THE 300S. LANTUS INCREASED THIS SHIFT. PATIENT RECEIVED PRN BENADRYL. PATIENT RECEIVED PARTIAL BATH THIS SHIFT. BED LOW. REPORT [facility] SH[facility].
--- NOTE | 2021-05-21 20:00 | NUR ---
ASSUMED CARE OF PT AT 1915. REPORT RECEIVED. PT PRESENTS IN BED. INTUBATED. MAINTAINS >90 PERCENT SATURATION WITH CURRENT SETTINGS. PROPOFOL AT 35 MCG/KG/MIN PROVIDES ADEQUATE SEDATION. NOTED COMPLEXION VIANEY. TORSO RASH NOTED. TUBE FEEDING INFUSING AT GOAL. PT IN NO APPARENT DISTRESS AT THIS TIME. FENTANYL DRIP AT 100 MCG/HOUR. WILL REVIEW CHART AND PLAN OF CARE FOR THIS PT.
--- NOTE | 2021-05-22 | NUR ---
PT HAS FIO2 INCREASE TO 60 PERCENT. PT HAS HAD SMALL AMOUNT OF THICK YELLOW/RPECIADO COLORED SECRETIONS FROM ETT. HAS NOT HAD BM THIS NIGHT. CONTINUES ON 35 MCG'S/KG/MIN PROPOFOL.
[2021-05-22 04:11] LABS: BASOPHILS PERCENT AUTO 1 % (0-2); EOSINOPHILS ABSOLUTE AUTO 1.84 K/mm3 (0.00-0.68); EOSINOPHILS PERCENT AUTO 17 % (0-6); Hematocrit 36.5 % (37.0-53.0); Hemoglobin 11.4 g/dL (13.5-17.5); IMMATURE GRAN ABSOLUTE AUTO 0.35 K/mm3 (0.00-0.10); IMMATURE GRAN PERCENT AUTO 3 % (0-1); LYMPHOCYTES ABSOLUTE AUTO 0.69 K/mm3 (0.84-5.20); LYMPHOCYTES PERCENT AUTO 7 % (21-46); MONOCYTES ABSOLUTE AUTO 0.55 K/mm3 (0.16-1.47); MONOCYTES PERCENT AUTO 5 % (4-13); Mean Corpuscular HGB 28.8 pg (26.0-34.0); Mean Corpuscular HGB Conc 31.2 g/dL (31.5-36.5); Mean Corpuscular Volume 92 fL (80-100); Mean Platelet Volume 12.1 fL (9.1-12.4); NEUTROPHILS ABSOLUTE AUTO 7.08 K/mm3 (1.96-9.15); NEUTROPHILS PERCENT AUTO 67 % (41-73); Platelet Count 286 K/mm3 (150-400); RDW Coefficient Variation 14.5 % (11.7-14.2); RDW Standard Deviation 48.5 fL (35.1-46.3); Red Blood Cell Count 3.96 M/mm3 (4.30-5.90); White Blood Cell Count 10.61 K/mm3 (4.00-11.30)
[2021-05-22 04:43] LABS: Anion Gap 2 mmol/L (6-16); Blood Urea Nitrogen 52 mg/dL (8-24); Bun/Creatinine Ratio 69.5 (12.0-20.0); CO2, Blood 35 mmol/L (21-32); Calcium, Blood 10.3 mg/dL (8.5-10.1); Chloride, Blood 106 mmol/L (98-108); Creatinine, Blood 0.75 mg/dL (0.60-1.20); Glomerular Filtration Rate >60 (60-); Glucose, Blood 233 mg/dL (70-99); Potassium, Blood 4.2 mmol/L (3.5-5.5); Sodium, Blood 143 mmol/L (136-145)
--- NOTE | 2021-05-22 05:36 | NUR ---
PT HAS CONTINUED TO TOLERATE VENT WITH PROPOFOL AT 35 MCG'S/KG/MIN. HAS HAD HIGHER BLOOD PRESSURES THIS NIGHT AND PT MEDICATED WITH HYDRALAZINE AND LABATELOL. SEE VS FLOWSHEET FOR DETAILS. WILL CONTINUE TO MONITOR PT, AND WILL REPORT OFF TO ONCOMING RN.
--- NOTE | 2021-05-22 07:00 | NUR ---
PT CARE ASSUMED AFTER CREDIT COLLECTIONS SPECIALIST REPORT. PT INTUBATED SEDATED. COUGH AND GAG IN PLACE. RED RAISED RASH NOTED ABD, CHEST, FACE. MD AWARE
--- NOTE | 2021-05-22 17:58 | NUR ---
PT STABLE THROUGHOUT DAY. PROPOFOL AT 25MCG AND FENT AT 100. PT DOES GRIMMACE BUT DOES NOT OPEN EYES OR FOLLOW COMMANDS. FAMILY UPDATED.
--- NOTE | 2021-05-22 19:33 | NUR ---
ASSUMED CARE OF PT AT 1900, REPORT RECEIVED FROM JOSE JULIEN. PT INTUBATED AND SEDATED ON 25 MCG/KG/MIN OF PROPOFOL AND 100 MCG/HR OF FENTANYL. VENT SETTINGS ACVC+ 25/400/8/60% WITH SPO2 95%. PT COUGHS WITH SUCTIONING, SMALL AMOUNT OF THICK WHITE SECRETIONS. DOES NOT FOLLOW COMMANDS OR OPEN EYES AT THIS TIME. HR 70'S SINUS ON MONITOR, SBP 115'S. CRUZ DRAINING DARK YELLOW URINE TO GRAVITY. LUNGS CLEAR WITH DIMINISHED BASES. ABD WITH HYPOACTIVE TONES. TF RUNNING AT GOAL 25 ML/HR WTH 30 ML Q4H WATER FLUSHES. PT WITH RED RASH TO ABD, ARMS AND FACE.
[2021-05-23 04:50] LABS: BASOPHILS ABSOLUTE AUTO 0.06 K/mm3 (0.00-0.23); BASOPHILS PERCENT AUTO 1 % (0-2); EOSINOPHILS ABSOLUTE AUTO 2.05 K/mm3 (0.00-0.68); EOSINOPHILS PERCENT AUTO 18 % (0-6); Hematocrit 38.1 % (37.0-53.0); Hemoglobin 11.9 g/dL (13.5-17.5); IMMATURE GRAN ABSOLUTE AUTO 0.28 K/mm3 (0.00-0.10); IMMATURE GRAN PERCENT AUTO 2 % (0-1); LYMPHOCYTES ABSOLUTE AUTO 1.04 K/mm3 (0.84-5.20); LYMPHOCYTES PERCENT AUTO 9 % (21-46); MONOCYTES ABSOLUTE AUTO 0.36 K/mm3 (0.16-1.47); MONOCYTES PERCENT AUTO 3 % (4-13); Mean Corpuscular HGB 28.7 pg (26.0-34.0); Mean Corpuscular HGB Conc 31.2 g/dL (31.5-36.5); Mean Corpuscular Volume 92 fL (80-100); Mean Platelet Volume 12.1 fL (9.1-12.4); NEUTROPHILS ABSOLUTE AUTO 7.82 K/mm3 (1.96-9.15); NEUTROPHILS PERCENT AUTO 67 % (41-73); Platelet Count 297 K/mm3 (150-400); RDW Coefficient Variation 14.6 % (11.7-14.2); RDW Standard Deviation 48.8 fL (35.1-46.3); Red Blood Cell Count 4.14 M/mm3 (4.30-5.90); White Blood Cell Count 11.61 K/mm3 (4.00-11.30)
[2021-05-23 05:29] LABS: Anion Gap 2 mmol/L (6-16); Blood Urea Nitrogen 52 mg/dL (8-24); Bun/Creatinine Ratio 74.1 (12.0-20.0); CO2, Blood 35 mmol/L (21-32); Calcium, Blood 10.5 mg/dL (8.5-10.1); Chloride, Blood 108 mmol/L (98-108); Glomerular Filtration Rate >60 (60-); Glucose, Blood 213 mg/dL (70-99); Phosphorus, Blood 2.9 mg/dL (2.5-4.9); Potassium, Blood 3.9 mmol/L (3.5-5.5); Sodium, Blood 145 mmol/L (136-145)
--- NOTE | 2021-05-23 06:26 | NUR ---
SHIFT SUMMARY PT REMAINS INTUBATED AND SEDATED. VENT SETTINGS ACVC+ 25/400/8/50%, SPO2 >90%. PROPOFOL INFUSING AT 30 MCG/KG AND FENTANYL AT 100 MCG/HR. PRN ATIVAN GIVEN TWICE THIS SHIFT DUE TO PT COUGHING AND SATS DROPPING TO MID 80'S. PRN HYDRALAZINE GIVEN ONCE FOR SBP >160. PT BOWEL TONES REMAIN HYPOACTIVE. NO BM THIS SHIFT. PT ATTEMPTED TO OPEN EYES ONCE, DID NOT FOLLOW ANY COMMANDS. LUNGS CLEAR WITH DIM BASES.
--- NOTE | 2021-05-23 07:00 | NUR ---
PT CARE ASSUMED AFTER REPORT FROM NIGHTSHIFT RN. PT INTUBATED, LIGHT SEDATION. EYE MOVEMENT WITH ORAL CARE.
--- NOTE | 2021-05-23 18:33 | NUR ---
PT REMAINED STABLE THROUGH DAY. FAMILY UPDATED.
--- NOTE | 2021-05-23 20:00 | NUR ---
ASSUMED CARE OF PT AT 1915. REPORT RECEIVED. PT PRESENTS IN BED. INTUBATE AC 25, Tv 400, PEEP 10, FIO2 45%. PT MAINTAINS SATURATIONS > 90 PERCENT WITH THIS SETTING. PT IN NO APPARENT DISTRESS AT THIS TIME. WILL REVIEW CHART AND PLAN OF CARE FOR THIS PT.
--- NOTE | 2021-05-24 | NUR ---
PT HAS REMAINED WITH SATURATIONS STABLE. HAVE NOT BEEN ABLE TO SUCTION ANY SECRETIONS.
[2021-05-24 04:21] LABS: BASOPHILS ABSOLUTE AUTO 0.06 K/mm3 (0.00-0.23); BASOPHILS PERCENT AUTO 1 % (0-2); EOSINOPHILS ABSOLUTE AUTO 2.17 K/mm3 (0.00-0.68); EOSINOPHILS PERCENT AUTO 19 % (0-6); Hematocrit 38.6 % (37.0-53.0); IMMATURE GRAN ABSOLUTE AUTO 0.26 K/mm3 (0.00-0.10); IMMATURE GRAN PERCENT AUTO 2 % (0-1); LYMPHOCYTES ABSOLUTE AUTO 1.16 K/mm3 (0.84-5.20); LYMPHOCYTES PERCENT AUTO 10 % (21-46); MONOCYTES ABSOLUTE AUTO 0.36 K/mm3 (0.16-1.47); MONOCYTES PERCENT AUTO 3 % (4-13); Mean Corpuscular HGB 28.9 pg (26.0-34.0); Mean Corpuscular HGB Conc 31.1 g/dL (31.5-36.5); Mean Corpuscular Volume 93 fL (80-100); NEUTROPHILS PERCENT AUTO 66 % (41-73); Platelet Count 298 K/mm3 (150-400); RDW Coefficient Variation 14.5 % (11.7-14.2); RDW Standard Deviation 49.5 fL (35.1-46.3); Red Blood Cell Count 4.15 M/mm3 (4.30-5.90); White Blood Cell Count 11.61 K/mm3 (4.00-11.30)
[2021-05-24 04:36] LABS: Albumin, Blood 1.9 g/dL (3.4-5.0); Anion Gap 2 mmol/L (6-16); Blood Urea Nitrogen 48 mg/dL (8-24); Bun/Creatinine Ratio 62.7 (12.0-20.0); CO2, Blood 37 mmol/L (21-32); Calcium, Blood 10.8 mg/dL (8.5-10.1); Chloride, Blood 108 mmol/L (98-108); Creatinine, Blood 0.77 mg/dL (0.60-1.20); Glomerular Filtration Rate >60 (60-); Glucose, Blood 91 mg/dL (70-99); Phosphorus, Blood 3.1 mg/dL (2.5-4.9); Potassium, Blood 3.8 mmol/L (3.5-5.5); Sodium, Blood 147 mmol/L (136-145)
--- NOTE | 2021-05-24 06:30 | NUR ---
PT HAS TOLERATED TURNS IN BED Q 2 HOURS. HAS HAD MINIMINAL RESIDUALS FROM OGT. HAS MAINTAINED ADEQUATE SEDATION 35 MCG'S AND FENTANYL DRIP AT 100 MCG'S. CALLS THIS MORNING, AND UPDATE WAS GIVEN. ALLOWED FOR QUESTIONS.
--- NOTE | 2021-05-24 07:00 | NUR ---
PT CARE ASSUMED AFTER REPORT FROM LEGAL RECORDS MANAGER RN. UNABLE TO FLUSH OG TUBE.
--- NOTE | 2021-05-24 15:35 | NUR ---
Spoke with pt's daughter Felipa today regarding pt's ongoing hospitalization. Felipa tells me her step-mom Mary (pt's ) is working today, and her brother (pt's son) lives out of town. I gently explained it becomes extremely hard for the bedside nurses to manage multiple calls, requests for updates and requests to place the phone up to the pt's ear multiple times per day. Felipa agrees to speak with the others and attempt to designate one person daily to receive the update. Provided therapeutic listening as she talked about her relationship with her father. She states she has been extremely close to him always, and is a "Daddy's girl". She shared that her friend's boyfriend from Covid yesterday here at [facility], and now she feels scared that her dad could also pass with very little warning. She doesn't seem to have much knowledge regarding trach/PEG and what kind of challenges there are that can come along with it as well, as pt is still unable to breath unassisted. Plan to update her again tomorrow, as well as updating Mary to attempt to take some of the share from the bedside RN.
--- NOTE | 2021-05-24 22:26 | NUR ---
Assumed care at 1900. assessment completed. Patient vented no signs of distress.
[2021-05-25 03:31] LABS: BASOPHILS ABSOLUTE AUTO 0.04 K/mm3 (0.00-0.23); BASOPHILS PERCENT AUTO 1 % (0-2); EOSINOPHILS ABSOLUTE AUTO 1.51 K/mm3 (0.00-0.68); EOSINOPHILS PERCENT AUTO 18 % (0-6); Hematocrit 35.3 % (37.0-53.0); IMMATURE GRAN ABSOLUTE AUTO 0.12 K/mm3 (0.00-0.10); IMMATURE GRAN PERCENT AUTO 1 % (0-1); LYMPHOCYTES ABSOLUTE AUTO 0.92 K/mm3 (0.84-5.20); LYMPHOCYTES PERCENT AUTO 11 % (21-46); MONOCYTES ABSOLUTE AUTO 0.34 K/mm3 (0.16-1.47); MONOCYTES PERCENT AUTO 4 % (4-13); Mean Corpuscular HGB 28.9 pg (26.0-34.0); Mean Corpuscular HGB Conc 31.2 g/dL (31.5-36.5); Mean Corpuscular Volume 93 fL (80-100); Mean Platelet Volume 12.1 fL (9.1-12.4); NEUTROPHILS ABSOLUTE AUTO 5.42 K/mm3 (1.96-9.15); NEUTROPHILS PERCENT AUTO 65 % (41-73); Platelet Count 283 K/mm3 (150-400); RDW Coefficient Variation 14.4 % (11.7-14.2); RDW Standard Deviation 49.1 fL (35.1-46.3); White Blood Cell Count 8.35 K/mm3 (4.00-11.30)
[2021-05-25 03:45] LABS: Anion Gap 1 mmol/L (6-16); Blood Urea Nitrogen 48 mg/dL (8-24); Bun/Creatinine Ratio 66.2 (12.0-20.0); CO2, Blood 37 mmol/L (21-32); Calcium, Blood 10.2 mg/dL (8.5-10.1); Chloride, Blood 108 mmol/L (98-108); Creatinine, Blood 0.73 mg/dL (0.60-1.20); Glomerular Filtration Rate >60 (60-); Glucose, Blood 133 mg/dL (70-99); Potassium, Blood 3.6 mmol/L (3.5-5.5); Sodium, Blood 146 mmol/L (136-145)
--- NOTE | 2021-05-25 08:06 | NUR ---
ASSUMED PT CARE. PT INTUBATED WITH VENT SETTINGS 25, 400, PEEP 8, O2 75%. PT O2 SATS 93%, STACKING BREATHS. PROP INCREASED TO 40MCG/KG/MIN, FENT AT 100MCG/HR. PERRLA 3 BILAT. COUGH AND GAG PRESENT. LUNGS DIM. SUCTIONED SMALL AMOUNT THIN PRECIADO SECRETIONS VIA ETT. OGT PLACEMENT CONFIRMED, 5 ML RESIDUAL CHECKED PER ORDER, TF AT GOAL RATE, HYPO BS X4. HR IRREGULAR 90-105, BP STABLE. MILD EDEMA BLE, 3+ EDEMA L HAND. FC AND ORAL CARE COMPLETED.
--- NOTE | 2021-05-25 18:19 | NUR ---
MAJOR EVENTS THIS SHIFT: METROPOL DOSE ADJUSTED, AND FENTANYL DECREASED TO 50CMG/HR. PROP AT 35 FOR SEDATION, VENT SETTINGS 25, 400, 8, 75%. PLAN FOR SURGICAL CONSULT TOMORROW RE: PEG AND TRACH, PALLIATIVE CARE HAS SPOKEN WITH FAMILY. RESP RATE NOT TRANSLATING TO MONITOR, BUT PT TOLERATING VENT. PTS UPDATED X 2 THIS SHIFT.
--- NOTE | 2021-05-25 20:32 | NUR ---
Assumed care at 1900. Patient on the vent at 60% FIO2 but saturation in the mid to high 80's. Suctioned and repositioned. At present saturation at 91%.
--- NOTE | 2021-05-26 02:47 | NUR ---
Patient remain vented and responds only during suctioning. Reposition from side to side for comfort. B/L soft wrist restraints were discontinued. will continue to monitor.
[2021-05-26 04:27] LABS: Hematocrit 35.4 % (37.0-53.0); Hemoglobin 11.2 g/dL (13.5-17.5); Mean Corpuscular HGB 28.9 pg (26.0-34.0); Mean Corpuscular HGB Conc 31.6 g/dL (31.5-36.5); Mean Corpuscular Volume 92 fL (80-100); Mean Platelet Volume 12.5 fL (9.1-12.4); Platelet Count 274 K/mm3 (150-400); RDW Coefficient Variation 14.3 % (11.7-14.2); Red Blood Cell Count 3.87 M/mm3 (4.30-5.90); White Blood Cell Count 8.75 K/mm3 (4.00-11.30)
[2021-05-26 04:56] LABS: Anion Gap 3 mmol/L (6-16); Blood Urea Nitrogen 44 mg/dL (8-24); Bun/Creatinine Ratio 55.3 (12.0-20.0); CO2, Blood 36 mmol/L (21-32); Calcium, Blood 10.4 mg/dL (8.5-10.1); Chloride, Blood 105 mmol/L (98-108); Glomerular Filtration Rate >60 (60-); Glucose, Blood 172 mg/dL (70-99); Potassium, Blood 3.4 mmol/L (3.5-5.5); Sodium, Blood 144 mmol/L (136-145)
[2021-05-26 05:29] LABS: BAND PERCENT MAN 2 % (0-8); BASOPHILS ABSOLUTE MAN 0.17 K/mm3 (0.00-0.23); BASOPHILS PERCENT MAN 2 % (0-2); EOSINOPHILS ABSOLUTE MAN 0.78 K/mm3 (0.00-0.68); EOSINOPHILS PERCENT MAN 9 % (0-6); LYMPHOCYTES ABSOLUTE MAN 0.78 K/mm3 (0.84-5.20); LYMPHOCYTES PERCENT MAN 9 % (21-46); METAMYELOCYTE ABSOLUTE MAN 0.08 K/mm3 (0.00-0.00); METAMYELOCYTE PERCENT MAN 1 % (0-0); MONOCYTES ABSOLUTE MAN 0.35 K/mm3 (0.16-1.47); MONOCYTES PERCENT MAN 4 % (4-13); MYELOCYTE ABSOLUTE MAN 0.08 K/mm3 (0.00-0.00); MYELOCYTE PERCENT MAN 1 % (0-0); NEUTROPHILS ABSOLUTE MAN 6.47 K/mm3 (1.96-9.15); SEG NEUTROPHILS PERCENT MAN 72 % (41-73); TOTAL CELLS COUNTED 100
--- NOTE | 2021-05-26 08:00 | NUR ---
AM ASSESSMENT: PT REMAINS INTUBATED AND SEDATED. PT GRIMACES AND BEGINS COUGHING WITH STIMULATION. PT NOT FOLLOWING COMMANDS. NO SPONTANEOUS EYE OPENING OR MOVEMENT OF EXTREMITIES. PT VERY AGITATED AND TACHYPNEIC WITH HAVING HIS FACE WASHED. TITRATED PROPOFOL UP TO 50 MCG/KG/MIN AND MED WITH ATIVAN 2 MG IVP. FENTANYL CONTINUOUS CONTINUES @ 50 MCG/HR. ECG SHOWS ST WITH RATE 110'S. BP STABLE AND PT IS AFEBRILE. LUNGS DIMINISHED TO BASES. ETT TO VENT: AC/VC-25, TV 400, PEEP 8, FIO2 60%-SATS >90%. ETT SUCTION PRODUCTIVE OF A LARGE AMOUNT OF THICK, PRECIADO SECRETIONS. PT TOLERATING OGTF WITH MINIMAL RESIDUAL. CRUZ WITH SMALL AMOUNT OF DARK, KHRIS URINE TO BSD-GENERALIZED EDEMA NOTED-ROUTINE AM LASIX GIVEN-SEE EMAR. K+REPLACEMENT INFUSING. PT HAS SCATTERED SCABS TO HIS FACE, CHIN, AND LIPS- CLEASED WITH SOAP AND WATER, PATTED DRY, AND TRIPLE ANTIBIOTIC OINTMENT APPLIED. ANTICIPATE DISCUSSION WITH FAMILY TODAY REGARDING TRACH AND PEG PLACEMENT. ACCORDING TO REPORT, PT HAD VERBALIZED THAT HE DID NOT WISH TO BE ON LIFE SUPPORT [facility]-THIS WAS STATED PRIOR TO INTUBATION, AND PT IS CURRENTLY DNR.
--- NOTE | 2021-05-26 09:39 | NUR ---
PT TACHYPNIEC, HIGH PEAK PRESSURES, AND ASYNCHRONOUS WITH VENT. SATS DOWN TO 85% AND FIO2 TITRATED UP TP 90% TO KEEP SATS>90%. DR. AYSE WHYTE.
--- NOTE | 2021-05-26 09:49 | NUR ---
MED WITH FENTANYL 100 MCG IVP AND ATIVAN 2 MG IVP X1 PT REMAINS ASYNCHRONOUS WITH VENT.
--- NOTE | 2021-05-26 10:02 | NUR ---
PT MED WITH VERSED 4 MG IVP X [address] TAVERA VERBAL ORDER. PT REMAINS AYNCHRONOUS WITH VENT. PEEP TITRATED UP TO [address] TAVERA AND FIO2 REMAINS AT 90% IN ORDER TO KEEP SATS>90%
--- NOTE | 2021-05-26 10:13 | NUR ---
PT SPOUSE MORE NOFIFIED OF PT DETERIORATING CONDITION. DISCUSS WITH HER WHETHER OT NOT PT HAD EVERY EXNPRESSED HIS WISHED TO HER REGARDING "LIFE SUPPORT." PT SPOUSE STATES "HE WOULD NOT WANT THIS!" PALLIATIVE AND PASTORAL CARE CONSULTED. ANTICIPATE FAMILY MEETING LATER TODAY TO DISCUSS PLAN OF CARE.
--- NOTE | 2021-05-26 10:51 | NUR ---
ROCURONIUM DRIP INITIATED. TO4 4/4 PRIOR TO STARTING PARALYTIC. RR 42 AND PEAK PRESSURES 49. MAP TRENDING 55-60. DR. VASQUEZ MADE AWARE.
--- NOTE | 2021-05-26 12:02 | NUR ---
Pt is not responsive, and his blood pressure this morning has dropped again. Pt's family have been called in by Rinaa bedside RN to discuss pt's condition, including discussion of comfort care. Until now, the pt's and daughter specifically have been hesitant to discuss comfort. They have continued to hold out hope that pt will return to his "normal self". However, it has become apparent this is not realistic. Plan to discuss further with family, along with Dr. Aviles after their visit today.
--- NOTE | 2021-05-26 12:49 | NUR ---
DR. TAVERA, PALLIATIVE CARE, AND THIS RN MET WITH PT FAMILY TO DISCUSS PLAN OF CARE. AWAITING THE ARRIVAL OF PT SON. WILL DISCUSS COMFORT CARE WITH PT SPOUSE AND CHILDREN LATER THIS AFTERNOON.
--- NOTE | 2021-05-26 13:50 | NUR ---
Ethics consultation service requested. Case details, medical history and prognostic factors reviewed. The principal is on mechanical airway support and has been exhibiting tangible signs of ongoing decline. A conversation is actively underway regarding the principals candidacy for tracheostomy. Concerns have been expressed relating to the principals ability to tolerate the procedure, and or medically benefit from it correction. My recommendation would be to titrate down sedation, facilitate a sequential organ failure assessment, and perform an EEG to ascertain the principals neurologic status and plausability of recovery, prior to conducting any invasive or semi-invasive treatment. The results of such diagnostic information could prove highly useful in establishing a consensus around pursuing a de-escalation of care strategy, if that indeed is the most clinically responsible and dignified path. Thank you for this consult. Jcarlos Carter ThD
--- NOTE | 2021-05-26 14:45 | NUR ---
PT FAMILY VERBALIZING DESIRE TO MAKE PT COMFORT CARE-ROCURONIUM DRIP OFF. KM FROM PALLIATIVE CARE AWARE AND DR. TAVERA NOTIFIED.
--- NOTE | 2021-05-26 15:53 | NUR ---
PT EXTUBATED AND MADE COMFORT CARE STATUS. MED WITH ATIVAN 2 MG IVP AND MORPHINE 5 MG IVP FOR AIR HUNGER. PT FAMILY AT BEDSIDE.
--- NOTE | 2021-05-26 17:06 | NUR ---
PT . FAMILY AT BEDSIDE.
--- NOTE | 2021-05-26 18:04 | NUR ---
Received orders for comfort care from Dr. Aviles. Pt's family was at bedside, along with ANAYA Mayers. Pt passed peacefully.
== END 2021-05-26 17:06 | DRG 207 ==
LOC: ER 16:30 → ICUE 20:19 → MEDS 20:19 → PCU 05-08 05:41 → ICUE 05-09 12:50
PROVIDERS: Family Medicine; Hospitalist; Internal Medicine; Internal Medicine Critical Care Medicine; Student in an Organized Health Care Education/Training Program; ADMIT Internal Medicine
PROC: 8E0ZXY6 Isolation (ICD-10-PCS; principal; 2021-04-28)
PROC: XW033E5 Introduction of Remdesivir Anti-infective into Peripheral Vein, Percutaneous Approach, New Technology Group 5 (ICD-10-PCS; 2021-04-28)
PROC: 3E0333Z Introduction of Anti-inflammatory into Peripheral Vein, Percutaneous Approach (ICD-10-PCS; 2021-04-28)
PROC: 5A0955A Assistance with Respiratory Ventilation, Greater than 96 Consecutive Hours, High Flow/Velocity Cannula (ICD-10-PCS; 2021-04-28)
PROC: 5A09557 Assistance with Respiratory Ventilation, Greater than 96 Consecutive Hours, Continuous Positive Airway Pressure (ICD-10-PCS; 2021-05-02)
PROC: 5A1955Z Respiratory Ventilation, Greater than 96 Consecutive Hours (ICD-10-PCS; 2021-05-09)
PROC: 0BH18EZ Insertion of Endotracheal Airway into Trachea, Via Natural or Artificial Opening Endoscopic (ICD-10-PCS; 2021-05-09)
PROC: 02HV33Z Insertion of Infusion Device into Superior Vena Cava, Percutaneous Approach (ICD-10-PCS; 2021-05-09)
DX: U07.1 COVID-19 (principal); J12.82 Pneumonia due to coronavirus disease 2019; J80 Acute respiratory distress syndrome; J15.9 Unspecified bacterial pneumonia; J44.1 Chronic obstructive pulmonary disease with (acute) exacerbation; J44.0 Chronic obstructive pulmonary disease with (acute) lower respiratory infection; N17.9 Acute kidney failure, unspecified; E87.1 Hypo-osmolality and hyponatremia; I31.9 Disease of pericardium, unspecified; Z51.5 Encounter for palliative care; Z66 Do not resuscitate; Z78.1 Physical restraint status; E66.9 Obesity, unspecified; K21.9 Gastro-esophageal reflux disease without esophagitis; E87.6 Hypokalemia; E78.5 Hyperlipidemia, unspecified; N18.2 Chronic kidney disease, stage 2 (mild); E11.22 Type 2 diabetes mellitus with diabetic chronic kidney disease; I12.9 Hypertensive chronic kidney disease with stage 1 through stage 4 chronic kidney disease, or unspecified chronic kidney disease; D63.1 Anemia in chronic kidney disease; R11.2 Nausea with vomiting, unspecified; F41.9 Anxiety disorder, unspecified; R21 Rash and other nonspecific skin eruption; D69.59 Other secondary thrombocytopenia; Z68.37 Body mass index [BMI] 37.0-37.9, adult; Z98.890 Other specified postprocedural states; Z91.048 Other nonmedicinal substance allergy status; Z79.84 Long term (current) use of oral hypoglycemic drugs; Z79.899 Other long term (current) drug therapy
CPT/HCPCS: 31500; 36415; 36556; 36600; 51702; 71045; 80048; 80053; 80069; 81001; 82330; 82803; 82947; 83036; 83735; 84100; 84145; 84295; 84478; 84484; 85025; 85379; 87070; 87205; 93005; 93010; 94002; 94003; 94640; 94660; 94762; 99283; A9270; C1751; C9113; J0360; J0696; J1100; J1170; J1200; J1650; J1815; J1885; J1940; J2060; J2250; J2270; J2405; J2704; J2765; J2930; J3010; J3480; J7030; J7040; J7050; J7060; J7120